=== PATIENT | male | born 1960 | race Caucasian/White ===

== ENCOUNTER 2022-06-25 08:51 | Outpatient (CLI) | payer OTHER, SELFPAY ==
--- NOTE | ~2022-06-25 | XR_ITS ---
EXAM: XR knee LT min 4V DATE: 06/25/2022 09:21 HISTORY: PAIN OF L KNEE JOINT x 6 mos; no injury . COMPARISON: 04/12/2019. FINDINGS: Normal mineralization. No fracture or dislocation. No lytic or blastic lesion. Severe medi al joint space narrowing. Moderate tricompartmental osteophytosis. No erosion or periosteal change. S oft tissues within normal limits. Large volume joint fluid. IMPRESSION: Tricompartmental left knee osteoarthritis, severe in the medial compartment. Large left k nee joint effusion. Reviewed, dictated and finalized at location K. OBJECTS SALESPERSON IMPRESSION: Tricompartmental left knee osteoarthritis, severe in the medial com partment. Large left knee joint effusion.
== END 2022-06-25 08:52 | disposition home or self-care (01) ==
PROVIDERS: PCP Internal Medicine Infectious Disease; Visit Provider Internal Medicine Infectious Disease
DX: M17.12 Unilateral primary osteoarthritis, left knee (principal); M25.462 Effusion, left knee
CPT/HCPCS: 73564

== ENCOUNTER 2023-04-23 13:22 | Emergency (ER) | payer OTHER, SELFPAY ==
--- NOTE | 2023-04-23 13:37 | PC.NURSE ---
Pt states Take me off the list. Im not going to wait 5 hours and left department
== END 2023-04-23 13:46 | disposition left against medical advice (07) ==
LOC: ANHED 13:40
PROVIDERS: PCP Internal Medicine Infectious Disease
DX: Z53.21 Procedure and treatment not carried out due to patient leaving prior to being seen by health care provider (principal)
CPT/HCPCS: 99199

== ENCOUNTER 2023-07-01 04:36 | Emergency (ER) | payer OTHER, SELFPAY ==
[2023-07-01] VITALS (7 sets, daily range): BP systolic 108–162; BP diastolic 54–79; PULSE 62–72; RESP 12–18; TEMP 36.2–36.5; O2SAT 96–99
--- NOTE | ~2023-07-01 | XR_ITS ---
Clinical Indication: Shortness of breath PA and lateral views of the chest: Comparison: None Findings: The lungs are clear, without evidence of focal consolidation or pleural effusion. Cardiome diastinal silhouette is within normal limits. Bones and soft tissues are unremarkable. Impression: Normal chest. Reviewed, dictated and finalized at [facility]. CASTING ENGINEER Impression: Normal chest.
--- NOTE | 2023-07-01 04:38 | ECG_ITS ---
Measurements Intervals [place] Rate: 68 P: 62 [place]: 225 QRS: 78 QRSD: 114 T: 67 QT: 374 QTc: 398 Interpretive Statements SINUS RHYTHM WITH FIRST DEGREE AV BLOCK INCOMPLETE RIGHT BUNDLE BRANCH BLOCK [90+ ms QRS DURATION, TERMINAL R IN V1/V2, 40+ ms S IN I/aVL/V4/V5/V6] BORDERLINE ECG NO PREVIOUS ECG AVAILABLE FOR COMPARISON Electronically Signed On 07-01-2023 15:08:44 RETAIL BUSINESS DEVELOPMENT MANAGER by Amauri Barros M.D.
--- NOTE | 2023-07-01 05:00 | ED.GENADULT ---
HPI - General Adult General Chief complaint: Shortness of Breath/Dyspnea <Vishnu Gama MD - Last Filed: 07/01/23 05:07> Stated complaint: shortness of breath <Vishnu Gama MD - Last Filed: 07/01/23 05:07> Time Seen by Provider: 07/01/23 04:48 <Vishnu Gama MD - Last Filed: 07/01/23 05:07> History of Present Illness HPI narrative: Patient is a 62-year-old gentleman presents to the emergency department with chief complaint of shortness of breath. Patient reports for the last several months has been having increasing shortness of breath he has seen his primary care provider as an outpatient echo pulmonary function test and a low-dose CT scan ordered also see Cardiology the patient states tonight he woke up felt short of breath and decided to come to the emergency department as he was scared <Vishnu Gama MD - Last Filed: 07/01/23 05:07> Related Data Allergies/adverse reactions: Allergies Allergy/AdvReac Type Severity Reaction Status Date / Time nalbuphine Allergy Unknown Unknown Verified 04/23/23 13:23 acetaminophen AdvReac Unknown Unknown Verified 04/23/23 13:23 hydrocodone AdvReac Unknown Unknown Verified 04/23/23 13:23 <Vishnu Gama MD - Last Filed: 07/01/23 05:07> Review of Systems Review of Systems: A 10 system review of systems was completed on the patient and is negative except for what is stated in the HPI. Nursing and ancillary documentation was reviewed. <Vishnu Gama MD - Last Filed: 07/01/23 05:07> PMFSH Social History Social History: Social History Smoking status: Never smoker Alcohol intake: current <Vishnu Gama MD - Last Filed: 07/01/23 05:07> Exam Narrative: GENERAL: Well-appearing, well-nourished, and in no acute distress. HEAD: Normocephalic, atraumatic. EYES: PERRLA and EOMI. ENT: Nares clear, no rhinorrhea or epistaxis. Mucous membranes moist. NECK: Supple. CHEST: Clear to auscultation. No respiratory distress. HEART: Regular rate and rhythm. No murmur heard. Normal peripheral pulses. ABDOMEN: Soft, nontender, nondistended, normal active bowel sounds. EXTREMITIES: Normal range of motion. No edema. SKIN: Warm, dry, no rash. NEURO: No focal deficits. Alert and oriented x3. PSYCH: Anxious mood and tearful affect. <Vishnu Gama MD - Last Filed: 07/01/23 05:07> Course Course Emergency Course: Troponin negative x2. Patient appropriate for discharge home and outpatient follow-up. Patient verbalized understanding of treatment plan and lab/ imaging/EKG results. <Matti Zabala MD - Last Filed: 07/01/23 09:00> Vital Signs Vital signs: Vital Signs Temperature 97.1 F L 07/01/23 04:39 Pulse Rate 71 07/01/23 04:39 Respiratory Rate 18 07/01/23 04:39 Blood Pressure 162/79 H 07/01/23 04:39 Pulse Oximetry 97 07/01/23 04:39 Temperature 97.7 F 07/01/23 04:57 Pulse Rate 68 07/01/23 07:00 Respiratory Rate 14 07/01/23 07:00 Blood Pressure 108/62 07/01/23 07:00 Pulse Oximetry 99 07/01/23 07:00 Oxygen Delivery Room Air 07/01/23 04:56 <Vishnu Gama MD - Last Filed: 07/01/23 05:07> Vital Signs Temperature 97.1 F L 07/01/23 04:39 Pulse Rate 71 07/01/23 04:39 Respiratory Rate 18 07/01/23 04:39 Blood Pressure 162/79 H 07/01/23 04:39 Pulse Oximetry 97 07/01/23 04:39 Temperature 97.7 F 07/01/23 04:57 Pulse Rate 68 07/01/23 07:00 Respiratory Rate 14 07/01/23 07:00 Blood Pressure 108/62 07/01/23 07:00 Pulse Oximetry 99 07/01/23 07:00 Oxygen Delivery Room Air 07/01/23 04:56 <Matti Zabala MD - Last Filed: 07/01/23 09:00> Medical Decision Making Vital Signs Vital Signs: Vital Signs Temperature 97.1 F L 07/01/23 04:39 Pulse Rate 71 07/01/23 04:39 Respiratory Rate
[2023-07-01 05:08] LABS: Basophils Percent Auto 0.5 % (0.2-1.2); Eosinophils Absolute Auto 0.4 K/mm3 (0-0.3); Eosinophils Percent Auto 5.8 % (0-4.4); Hematocrit 43.7 % (42.0-52.0); Immature Granulocyte Absolute 0.02 K/mm3 (0.00-0.031); Immature Granulocyte Percent A 0.3 % (0-0.5); Lymphocytes Absolute Auto 1.86 K/mm3 (0.9-3.2); Lymphocytes Percent Auto 30.2 % (18.3-44.2); Mean Corpuscular Hemoglobin 30.9 pg (26-34); Mean Corpuscular Volume 96.5 fl (80-100); Mean Platelet Volume 12.2 fl (7.4-10.4); Monocytes Absolute Auto 0.7 K/mm3 (0.1-0.6); Neutrophils Absolute Auto 3.2 K/mm3 (1.3-6.7); Neutrophils Percent Auto 51.2 % (45.5-73.1); Platelet Count Result 201 k/mm3 (150-375); Red Blood Count 4.53 M/mm3 (4.6-6.20); Red Cell Distribution Width 12.9 % (11.5-14.5); White Blood Count 6.2 K/mm3 (4.5-10.0)
[2023-07-01 05:31] LABS: Alanine Aminotransferase 35 U/L (6-50); Albumin Level 4.6 g/dL (3.5-5.1); Alkaline Phosphatase 57 U/L (38-126); Anion Gap 9 mmol/L (8-16); Aspartate Amino Transferase 31 U/L (17-59); Bilirubin,Total 0.5 mg/dL (0.2-1.3); Blood Urea Nitrogen 19 mg/dL (9-20); Calcium 9.9 mg/dL (8.4-10.2); Carbon Dioxide 26 mmol/L (22-30); Chloride 105 mmol/L (98-107); Estimated CRCL calculation 90 ml/min; Estimated Glomerular Filt Rate > 60; Glucose 120 mg/dL (65-110); INR 0.9; Prothrombin Time 12.3 Seconds (11.1-14.7); Sodium 140 mmol/L (137-145)
[2023-07-01 05:32] LABS: Partial Thromboplastin Time 25.4 SECONDS (22.3-36.8)
[2023-07-01 05:37] LABS: Ethanol < 10 mg/dL (<10)
[2023-07-01 05:42] LABS: Magnesium 1.9 mg/dL (1.6-2.3)
[2023-07-01 05:59] LABS: NT Pro B Type Natriuretic Pept 109 pg/mL (19.9-100); Troponin I < 0.012 ng/mL (0.000-0.034)
[2023-07-01 08:44] LABS: Troponin I < 0.012 ng/mL (0.000-0.034)
== END 2023-07-01 09:10 | disposition home or self-care (01) ==
PROVIDERS: Emergency Provider Emergency Medicine; PCP Internal Medicine Infectious Disease
DX: R07.9 Chest pain, unspecified (principal); I44.0 Atrioventricular block, first degree; I45.10 Unspecified right bundle-branch block
CPT/HCPCS: 36415; 71046; 80053; 80307; 83735; 83880; 84484; 85025; 85610; 85730; 93005; 99284

== ENCOUNTER 2023-07-09 07:18 | Outpatient (CLI) | payer OTHER, SELFPAY ==
--- NOTE | 2023-07-09 | ECHO_ITS ---
Patient Info Name: Lamont Jacob Age: 62 years : 1960 Gender: Male Ht: 72 in Wt: 250 lbs BSA: 2.44 m2 HR: 58 bpm BP: 127 / 84 mmHg Heart Rhythm: Sinus Rhythm Technical Quality: Fair Exam Date: 07/09/2023 7:52 AM Exam Location: Echo Lab Patient Status: Outpatient Admit Date: 07/09/2023 Staff Ordering Physician: ChloeJanet M.D. Attending Provider: Juan CarlosJanet M.D. Exam Type: CA echo doppler color flow Study Info Indications R06.09 - Other forms of dyspnea Complete two-dimensional, color flow and Doppler transthoracic echocardiogram is performed. Summary 1. Complete two-dimensional, color flow and Doppler transthoracic echocardiogram is performed. 2. Left ventricular chamber dimension is normal. 3. Left ventricular systolic function is normal, estimated at 60-65%. 4. There is mildly increased left ventricular wall thickness. 5. The left ventricular diastolic function is grade I diastolic dysfunction. 6. There is mild aortic valve calcification. 7. There is mild tricuspid valve regurgitation. Left Ventricle Left ventricular chamber dimension is normal. Left ventricular systolic function is normal, estimated at 60-65%. There is mildly increased left ventricular wall thickness. The left ventricular diastolic function is grade I diastolic dysfunction. Right Ventricle Right ventricular chamber dimension is normal. Right ventricular systolic function is normal. Left Atria Left atrial chamber dimension is normal. Right Atria Right atrial chamber dimension is normal. Atrial Septum Intact interatrial septum visualized by color flow imaging. Aortic Valve The aortic valve is trileaflet. There is no aortic valve stenosis. There is trace aortic valve regurgitation. There is mild aortic valve calcification. Pulmonic Valve The pulmonic valve is normal. There is no pulmonic valve stenosis. There is trace pulmonic regurgitation. Mitral Valve The mitral valve has normal leaflets. There is no mitral valve stenosis. There is trace mitral valve regurgitation. Tricuspid Valve The tricuspid valve leaflets are normal. There is no significant tricuspid valve stenosis. There is mild tricuspid valve regurgitation. Pericardium/Pleural The pericardium appears normal. There is no pericardial effusion. Inferior Vena Cava Normal inferior vena cava with >50% collapse upon inspiration consistent with normal right atrial pressure, 8 mmHg. Aorta The aortic root size at the sinus of Valsalva is normal. Left Ventricular Outflow Tract Name Value Normal LVOT 2D LVOT Diameter 2.0 cm LVOT Doppler LVOT Peak Gradient 4 mmHg LVOT Mean Gradient 2 mmHg LVOT VTI 21 cm LVOT VTI/AV VTI Ratio 0.6 LVOT Stroke Volume 66 ml LVOT CO 3.8 l/min LVOT CI 1.6 l/min/m2 Pulmonic Valve Name Value Normal PV Do
--- NOTE | 2023-07-09 12:44 | WPDPFTINT ---
PFT Procedure Performed PFT Procedure Performed Spirometry with Pre/Post Bronchodilator Plethysmography (Lung Vol) Diffusing Cap (DLCO) Flow Vol Loop PFT Interpretation This is a pulmonary function test with pre and post-bronchodilator spirometry, plethysmography and diffusing capacity. The test was performed and results interpreted in accordance with the 2019 and 2005 ATS/ERS Task Force guidelines respectively using the Global Lung Function Initiative-2012 reference equations. Patient demonstrated good effort and cooperation. Reproducibility criteria were met. The quality of the pre bronchodilator spirometry maneuver was Grade A and post bronchodilator spirometry maneuver was Grade A. Findings: Spirometry: The contour the inspiratory and expiratory flow tracing are normal. The pre bronchodilator FVC is 4.52 L, 91% predicted. The pre bronchodilator FEV1 is 3.13 L, 82% predicted. The pre bronchodilator FEV1: FVC ratio is 69%. The post bronchodilator FVC is 4.55 L, representing a 1% increase. The post bronchodilator FEV1 is 3.23 L, representing a 3% increase. The post bronchodilator FEV1: FVC ratio 71%. Plethysmography: The total lung capacity is 8.10 L, 109% predicted. The functional residual capacity is 4.33 L, 111% predicted. The residual volume is 3.51 L, 149% predicted. Diffusing capacity: The diffusing capacity unadjusted for hemoglobin and carboxyhemoglobin is 24.5, 84% predicted. The diffusing capacity adjusted for alveolar volume is 3.99, 97% predicted. Impression: The spirometry is normal without evidence of an obstructive abnormality. There is no significant improvement after inhaling a single dose of albuterol. The total lung capacity and functional residual capacity are normal with an increased residual volume. This is an abnormal but nonspecific lung volume pattern. The diffusing capacity is normal. There are no prior studies for comparison
== END 2023-07-09 07:19 | disposition home or self-care (01) ==
LOC: ANHCARD 07:24
PROVIDERS: PCP Internal Medicine Infectious Disease; Visit Provider Internal Medicine Infectious Disease
DX: R06.09 Other forms of dyspnea (principal); R93.1 Abnormal findings on diagnostic imaging of heart and coronary circulation; I70.0 Atherosclerosis of aorta; I07.1 Rheumatic tricuspid insufficiency
CPT/HCPCS: 93306; 94060; 94726; 94729

== ENCOUNTER 2023-07-12 13:46 | Outpatient (CLI) | payer OTHER, SELFPAY ==
--- NOTE | ~2023-07-12 | CT_ITS ---
CT Scan of the Chest without Contrast: Clinical Indication: Cancer screening, personal history of nicotine dependence Technique: Contiguous sections were acquired throughout the chest without intravenous contrast. Dose reduction technique was used on this scan by utilizing automated exposure control and iterative recon struction technique. The dose-length product (DLP) was 266.03 mGy-cm. Findings: There is no evidence of any significant mediastinal, hilar or axillary lymphadenopathy. The mediastin al soft tissues appear normal. There is no evidence of pleural or pericardial effusion. There are several scattered 1-2 mm pulmonary nodules. Images through the upper abdomen reveal no abnormalities. Impression: Lung RADS 2: Benign appearance. 12 month follow-up screening CT advised. Reviewed, dictated and finalized at location . ONS ENGINEER Impression: Lung RADS 2: Benign appearance. 12 month follow-up screening CT advised.
== END 2023-07-12 13:47 | disposition home or self-care (01) ==
PROVIDERS: PCP Internal Medicine Infectious Disease; Visit Provider Internal Medicine Infectious Disease
DX: Z12.2 Encounter for screening for malignant neoplasm of respiratory organs (principal); Z87.891 Personal history of nicotine dependence
CPT/HCPCS: 71271

== ENCOUNTER 2024-08-25 11:24 | Outpatient (CLI) | payer OTHER, SELFPAY ==
--- NOTE | ~2024-08-25 | XR_ITS ---
Right Shoulder Technique: AP and scapular Y views were obtained. Clinical History: Pain Findings: No fracture or dislocation is seen. Osseous alignment is anatomic. The glenohumeral and acr omioclavicular joint spaces are preserved. Soft tissues are unremarkable. Impression: Unremarkable right shoulder radiographs. Reviewed, dictated and finalized at [facility]. IFIED SKI PATROLLER Impression: Unremarkable right shoulder radiographs.
--- OUTSIDE RECORDS SUMMARY | 2024-08-25 12:36 | XMS_ITS | Encounter Summary ---
Author Organization [facility] Address [address] [place] [address] Care Team Providers Care Chief Technician Name Role Phone Unavailable Primary Care Provider Unavailabl e Encounter Details Date Type Department Care Team (Late st Contact Info) Description 01/02/2001 Outpatient Historical [facility] Internal Medicine Medical [place] [facility] [address] [facility] [address] Mario Soria MD [address] [place] [address] Social History Tobacco Use Types Packs/Day Years Used Date Smoking Tobacco: Never Assessed Sex and Gender Information Value Date Recorded Sex Assigned at Not on file Legal Sex Male 5:10 AM 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
--- OUTSIDE RECORDS SUMMARY | 2024-08-25 12:36 | XMS_ITS | Encounter Summary ---
Author Organization [facility] Address [address] [place] [address] Phone Care Team Providers Care Grinding Room Inspector Name Role Phone Janet Corona MD Primary Care Provider Encounter Details Date Type Department Care Team (Latest Contact Info) Description 09/04/2023 Orders Only [facility] Latesha Garduno, RENZO [address] [facility] [address] [place] [address] Social History Tobacco Use Types Packs/Day Years Used Date Smoking Tobacco: Some Days Cigarettes Personal Safety Answer Date Recorded Getting School Help Needed Not on file 07/16 Sex and Gender Information Value Date Recorded Sex Assigned at Not on file Legal Sex Male 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 Gender Identity Not on file Sexual Orientation Not on file documented as of this encounter Plan of Treatment Not on file documented as of this encounter Procedures Procedure Name Priority Date/Time Associated Diagnosis Comments SCAN - LABS 09/04/2023 documented in this encounter Results * SCAN - LABS (09/04/2023) Latesha Garduno RN Final Result documented in this encounter Visit Diagnoses Not on filedocumented in this encounter Care Teams Grinding Room Inspector Relationship Specialty Start Date End Date Janet Corona MD [address] [facility] [address] [place] [address] PCP - General Internal Medicine 06/19/23 documented as of this encounter
--- OUTSIDE RECORDS SUMMARY | 2024-08-25 12:36 | XMS_ITS | Continuity of Care Document ---
Author Organization [facility] Address [address] [place] [address] Phone Care Team Providers Care Dispatch Machine Runner Name Role Phone Aminata Douglas Unavailable Unavailable Advance Directives Directive Yes / No Effective Date File Name No Information Encounters Encounter Description Practice Location Reason(s) For Visit Diagnoses Date Provider Providers Copied on Encounter [facility], [address], [place], [place], [id number], [place] tel:[phone] [facility] No Information 5-200 0 Stella Coates. [address], [place], [address], [place]. tel:[phone] Family History Family Member Type Diagnosis Age At Onset No Information Payers Payer name Insurance type Covered green party ID Authoriza tion(s) No Information Social [...]
--- OUTSIDE RECORDS SUMMARY | 2024-08-25 12:36 | XMS_ITS | Clinical Summary ---
Author Organization [facility] Address [address] [place] [address] Care Team Providers Care Solutions Sales Consultant Name Role Phone Janet Corona MD Primary Care Provider Allergies Active Allergy Reactions Criticality Noted Date Comments Gemfibrozil Itching Low 10/02/2018 Hydrocodone-Acetaminophen Headache Low 09/30/2019 Metoprolol Fatigue Low 11/29/2023 Nalbuphine Unknown 08/07/2023 Hrteztp-Lxd-Gkf Reductase Inhibitors Diarrhea Low 08/07/2023 Medications Viagra 100 mg tablet TAKE 0.5 TABLET BY MOUTH 1 HOUR PRIOR TO SEXUAL ACTIVITY DIRECTED, NOT TO EXCEED MORE THAN 0.5 TABLET EVERY 24 HOURS, MUST LAST 30 DAYS Active valsartan (DIOVAN) 80 mg tablet Take 1 tablet (80 mg total) by mouth daily 30 tablet 11 08/23/2023 Active venlafaxine 37.5 mg tablet extended release 24hr 24 hr tablet Take 1 tablet (37.5 mg total) by mouth daily Active hydrOXYzine (VISTARIL) 25 mg capsule Take 1 capsule (25 mg total) by mouth 3 (three) times a day as needed for anxiety 09/23/2023 Active atorvastatin (LIPITOR) 10 mg tablet Take 1 tablet (10 mg total) by mouth daily 30 tablet 06/01/2024 06/01/20 Active Active Problems Problem Noted Date Diagnosed Date Hypertension 10/15/2023 Mixed hyperlipidemia 10/15/2023 Generalized anxiety disorder 10/15/2023 Chronic alcohol use 10/15/2023 Tinnitus 10/15/2023 Encounters Date Type Department Care Team Description 05/30/2024 Telephone [facility] Cardiology [address] [facility] [address] [place] [address] [place] [address] Sukhi Knowles MD Med Change Request from Last 3 Months Social History Tobacco Use Types Packs/Day Years Used Date Smoking Tobacco: Some Days Cigarettes Tobacco Cessation:Ready to Q uit: Not Asked; Counseling Given: Not Answered Personal Safety Answer Date Recorded Getting School Help Needed Not on file 07/16 Sex and Gender Information Value Date Recorded Sex Assigned at Not on file Legal Sex Male 4:44 AM HEALTH AND WELLNESS DIRECTOR Gender Identity Not on file Sexual Orientation Not on file Obstetrics History Last Filed Vital Signs Vital Sign Reading Time Taken Comments Blood Pressure 155/83 10/14/2023 8:02 AM CDT Pulse 71 10/14/2023 8:02 AM CDT Temperature 36.7 ??C (98.1 ??F) 10/14/2023 8:02 AM CD T Respiratory Rate - - Oxygen Saturation 98% 10/14/2023 8:02 AM CDT Inhaled Oxygen Concentration - - Weight 113.9 kg (251 lb) 10/14/2023 8:02 AM CDT Height 182.9 cm (6') 10/14/2023 8:02 AM CDT Body Mass Index 34.04 10/14/2023 8:02 AM CDT Plan of Treatment Health Maintenance Due Date Last Done Comments Colon Cancer Screening-Colonoscopy 1960 Depression Screening 1960 Hepatitis C Screening 1960 Prostate Cancer Screening-PSA 1960 Pneumococcal vaccine <65 (1 of 2 - PCV) 1968 DTaP/Tdap/Td Vaccine (1 - Tdap) 1973 Hepatitis B Screening 1980 Regular Well Visit/Exam 18-64 1980 Zoster Vaccine (1 of 2) 2012 Covid-19 Vaccine (6 - 2023-2 5 season) 2024 06/05/2023, 05/29/2022, 06/16/2021, Additional history exists Influenza Vaccine (#1) 2024 , 05/02/2022, 05/08/2021, Additional history exists Insurance [facility] Care Teams Solutions Sales Consultant Relationship Specialty Start Date End Date Janet Corona MD [facility] [place] [address] PCP - General Internal Medicine 06/19/23
--- OUTSIDE RECORDS SUMMARY | 2024-08-25 12:36 | XMS_ITS | Encounter Summary ---
Author Organization [facility] Address [address] [place] [address] Phone Care Team Providers Care Seed Cleaning Manager Name Role Phone Janet Corona MD Primary Care Provider Encounter Details Date Type Department Care Team (Latest Contact Info) Description 07/01/2023 Orders Only [facility] Latesha Garduno, RN [address] [facility] [address] [place] [address] Social History Tobacco Use Types Packs/Day Years Used Date Smoking Tobacco: Never Assessed Sex and Gender Information Value Date Recorded Sex Assigned at Not on file Legal Sex Male 4:44 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 & 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 Gender Identity Not on file Sexual Orientation Not on file documented as of this encounter Plan of Treatment Not on file documented as of this encounter Procedures Procedure Name Priority Date/Time Associated Diagnosis Comments PULMONARY - RESULT SCAN 07/09/2023 SCAN - RADIOLOGY/IMAGING 07/01/2023 SCAN - LABS 07/01/2023 documented in this encounter Results * PULMONARY - RESULT SCAN (07/09/2023) Anatomical Region Laterality Modality Other us Latesha Garduno RN Final Result * SCAN - LABS (07/01/2023) us Latesha Garduno RN Final Result * SCAN - RADIOLOGY/IMAGING (07/01/2023) Anatomical Region Laterality Modality Other us Latesha Garduno RN Final Result documented in this encounter Visit Diagnoses Not on filedocumented in this encounter Care Teams Seed Cleaning Manager Relationship Specialty Start Date End Date Janet Corona MD [address] [place] [address] PCP - General Internal Medicine 06/19/23 documented as of this encounter
--- OUTSIDE RECORDS SUMMARY | 2024-08-25 12:36 | XMS_ITS | Encounter Summary ---
Author Organization [facility] Address 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
--- OUTSIDE RECORDS SUMMARY | 2024-08-25 12:36 | XMS_ITS | Encounter Summary ---
Author Organization [facility] Address [address] [place] [address] Phone Care Team Providers Care Sexer Name Role Phone Janet Corona MD Primary Care Provider Encounter Details Date Type Department Care Team (Latest Contact Info) Description 01/04/2016 Orders Only [facility] Latesha Garduno RN [address] [facility] [address] [place] [address] Social History Tobacco Use Types Packs/Day Years Used Date Smoking Tobacco: Never Assessed Sex and Gender Information Value Date Recorded Sex Assigned at Not on file Legal Sex Male 4:44 AM FILLING AND STAPLING MACHINE OPERATOR Gender Identity Not on file Sexual Orientation Not on file documented as of this encounter Plan of Treatment Not on file documented as of this encounter Procedures Procedure Name Priority Date/Time Associated Diagnosis Comments CARDIOLOGY DOCUMENT SCAN 01/04/2016 documented in this encounter Results * CARDIOLOGY DOCUMENT SCAN (01/04/2016) Anatomical Region Laterality Modality Other us Latesha Garduno RN [facility] P ROCEDURES Final Result documented in this encounter Visit Diagnoses Not on filedocumented in this encounter Care Teams Sexer Relationship Specialty Start Date End Date Janet Corona MD [address] [facility] [address] [place] [address] PCP - General Internal Medicine 06/19/23 documented as of this encounter
--- OUTSIDE RECORDS SUMMARY | 2024-08-25 12:36 | XMS_ITS | Clinical Summary ---
Author Organization [facility] Responsa Address [address] [facility] [place] [address] Care Team Providers Care Buyer Tobacco Head Name Role Phone Janet Corona MD Primary Care Provider Source Comments [facility],non-owned Affiliates and Associated Physician Practices is amultiple site organization consisting of ambulatory clinics and hospital sitesin [place], [place], [place] and [place]. This disclosure is being madepursuant to the Care Everywhere program and may not contain all information available regarding this patient. Last updated 18.[facility] Allergies Active Allergy Reactions Criticality Noted Date Comments Hydrocodone-Acetaminophen Headache 09/30/2019 Medications * Be aware that medications may not be up to date on this document. Alwaysverify current medications with the patient. Medication Sig Dispensed Refills Start Date End Date Status valsartan 80 MG TABS 80 mg, hydroCHLOROthiazide 12.5 MG CAPS 12.5 mg Take by mouth once daily Active ezetimibe-simvastatin (VYTORIN) 10-10 MG tablet Take 1 (one) tablet by mouth at bedtime Active fenofibrate (TRICOR) 145 MG tabletIndications:Mixed hyperlipidemia Take 1 tablet by mouth once daily 90 tablet 3 11/02/2019 Active valACYclovir (Valtrex) 500 MG tablet Take 1 (one) tablet by mouth once daily as directed. 06/18/2022 Active Cyanocobalamin (VITAMIN B-12 PO) Active Ascorbic Acid (DAY-C PO) Active B Complex Vitamins (VITAMIN B COMPLEX PO) Ac tive ibuprofen (Motrin) 200 MG tablet Take by mouth every 6 hours as needed for Pain Active diphenhydrAMINE (Benadryl Allergy) 25 MG capsule Take 1 (one) capsule by mouth every 4 hours as needed for Itching Active Active Problems Problem Noted Date Diagnosed Date Mixed hyperlipidemia Prediabetes Class 2 obesity Steatohepatitis Chronic alcohol use Hypertension Immunizations Name Administration Dates Next Due INFLUENZA VACCINE 05/05/2019 Family History Medical History Relation Name Comments CAD (Coronary Artery Disease) Neg Hx Hyperlipidemia Neg Hx Social History Tobacco Use Types Packs/Day Years Used Date Smoking Tobacco: Never Smokeless Tobacco: Never Alcohol Use Standard Drinks/Week Comments Yes 8 (1 standard drink = 0.6 oz pur e alcohol) Sex and Gender Information Value Date Recorded Sex Assigned at Not on file Gender Identity Not on file Sexual Orientation Not on file Last Filed Vital Signs Vital Sign Reading Time Taken Comments Blood Pressure 138/90 09/30/2019 2:03 PM FILLING HAULER Pulse 70 09/30/2019 2:03 PM FILLING HAULER Temperature 36.2 ??C (97.2 ??F) 09/30/2019 2:03 PM CS T Respiratory Rate - - Oxygen Saturation 98% 09/30/2019 2:03 PM FILLING HAULER Inhaled Oxygen Concentration - - Weight 113.4 kg (250 lb) 07/12/2022 8:29 AM FILLING HAULER Height 182.9 cm (6') 07/12/2022 8:29 AM FILLING HAULER Body Mass Index 33.91 07/12/2022 8:29 AM FILLING HAULER Plan of Treatment Health Maintenance Due Date Last Done Comments COLOGUARD (AGES 45-75) - COLON CA SCREENING 1962 COLON MONITORING 1962 COLONOSCOPY - COLON CA SCREENING 1962 CT COLONOGRAPHY - COLON CA SCREENING 1962 Colorectal Cancer Screening 1962 FIT - COLON CA SCREENING 1962 FLEX SIG - COLON CA SCREENING 1962 HIV SCREENING 1977 HEPATITIS C SCREENING 07/05/1980 DTAP/TDAP/TD VACCINES (1 - Tdap) 1981 PNEUMOCOCCAL VACCINE 50+ (1 of 1 - PCV) 2012 ZOSTER VACCINE (1 of 2) 2012 SCREENING FOR DIABETES 11/18/2022 11/19/2019 COVID-19 VACCINE (4 - season) 2024 06/16/2021, 10/19/2020, 09/23/2020 INFLUENZA VACCINE (#1) 2024 2, 05/08/2021, 05/18/2020, Additional history exists DEPRESSION SCREENING 07/29/2024 Respiratory Syncytial Virus (RSV) Vaccine Pt: or over 60 yrs (1 - 1-dose 75+ series) 2037 HEPATITIS B VACCINE Aged Out No longe r eligible based on patient's age to complete this topic HIB VACCINE Aged Out No longer eligi ble based on patient's age to complete this topic HPV VACCINE Aged Out No longer eligi ble based on patient's age to complete this topic MENINGOCOCCAL (Group B) VACCINE Aged Out No longer eligible based on patient's age to complete this topic MENINGOCOCCAL VACCINE Aged Out No madhav sam eligible based on patient's age to complete this topic PNEUMOCOCCAL VACCINE Aged Out No long er eligible based on patient's age to complete this topic Procedures Procedure Name Priority Date/Time Associated Diagnosis Comments HEMOGLOBIN A1C Routine 11/19/2019 8:44 AM CDT Mixed hyperlipidemia Prediabetes Hypertriglyceridemia from Last 3 Months or Most Recently Relevant to Health Maintenance Results * (ABNORMAL) HEMOGLOBIN A1C (11/19/2019 8:44 AM CDT) Hemoglobin A1c 6.0(H) 4.8 - 5.6 % [facility] INSURANCE BILL Comment: ? . ? Prediabetes: 5.7 - 6.4 ? Diabetes: >6.4 ? Glycemic control for adults with diabetes: <7.0 FASTING Blood BLOOD SPECIMEN / Unknown 11/19/2019 8:44 AM CDT 11/19/2019 Narrative Resulting Agency Comment Lab Testing performed at: [place] [id number] [facility] ??[facility] [id number] Kavita Garzon MD LAB - CHEMISTR Y ORDERABLES [facility] INSURANCE BILL [address] [place] [address] from Last 3 Months or Most Recently Relevant to Health Maintenance Insurance Payer Benefit Plan / Group Subscriber ID Effective Dates Phone Address Type [facility] MEDICAID [id number] Effective for all dates ATTN CLAIMS DEPARTMENT [address] [place] [address] [address] [facility] MEDICA[facility] [id number] Effective for all dates ATTN CLAIMS DEPARTMENT [address] [place] [address] Medicaid Managed Care [facility] MEDICAID [id number] Effective for all dates ATTN CLAIMS DEPARTMENT [address] [place] [address] [facility] [address] [facility] MEDICA[facility] [id number] Effective for all dates ATTN CLAIMS DEPARTMENT [address] [place] [address] Medicaid Managed Care [facility] [place] [facility] [place] [id number] Effective for all dates ATTN CLAIMS DEPARTMENT [address] [place] [address] Medicaid Managed Care [facility] MEDICAID [id number] Effective for all dates ATTN CLAIMS DEPARTMENT [address] [place] [address] Medicaid Managed Care [facility] MEDICAID [id number] Effective for all dates ATTN CLAIMS DEPARTMENT [address] [place] [address] Medicaid Managed Care [facility] MEDICAID [id number] Effective for all dates ATTN CLAIMS DEPARTMENT [address] [place] [address] Medicaid Managed Care [facility] MEDICAID [id number] Effective for all dates ATTN CLAIMS DEPARTMENT [address] [place] [address] Medicaid Managed Care [facility] MEDICAID [id number] Effective for all dates ATTN CLAIMS DEPARTMENT [address] [place] [address] Medicaid Managed Care [facility] MEDICAID [id number] Effective for all dates ATTN CLAIMS DEPARTMENT [address] [place] [address] Medicaid Managed Care [facility] MEDICAID [id number] Effective for all dates ATTN CLAIMS DEPARTMENT [address] [place] [address] Medicaid Managed Care [facility] MEDICAID [id number] Effective for all dates ATTN CLAIMS DEPARTMENT [address] [place] [address] Medicaid Managed Care [facility] MEDICAID [id number] Effective for all dates ATTN CLAIMS DEPARTMENT [address] [place] [address] Medicaid Managed Care [facility] MEDICAID [id number] Effective for all dates ATTN CLAIMS DEPARTMENT [address] [place] [address] Medicaid Managed Care [facility] MEDICAID [id number] Effective for all dates ATTN CLAIMS DEPARTMENT [address] [facility] [address] [facility] [address] [facility] MEDICAID [id number] Effective for all dates ATTN CLAIMS DEPARTMENT [address] [facility] [address] [address] Care [facility] MEDICA[facility] [id number] Effective for all dates ATTN CLAIMS DEPARTMENT [address] [place] [place] [address] Managed [address] [facility] MEDICAID [id number] Effective for all dates ATTN CLAIMS DEPARTMENT [address] [facility] [address] [place] [address] [facility] MEDICAID [id number] Effective for all dates ATTN CLAIMS DEPARTMENT 1 [facility], [address] [place] [address] Medicaid Managed Care [facility] MEDICAID [id number] Effective for all dates ATTN CLAIMS DEPARTMENT 1 [facility] [place], [address] [place] [address] Medicaid Managed Care [facility] MEDICAID [id number] Effective for all dates ATTN CLAIMS DEPARTMENT 1 [facility], [address] [place] [address] Medicaid Managed Care [facility] MEDICAID [id number] Effective for all dates ATTN CLAIMS DEPARTMENT 1 [address] [address] [place] [address] Medicaid Managed Care [facility] MEDICAID [id number] Effective for all dates ATTN CLAIMS DEPARTMENT [address] [place] [address] [address] Managed Care [facility] MEDICA[facility] [id number] Effective for all dates ATTN CLAIMS DEPARTMENT [address] [place] [address] [facility] MEDICA[facility] [id number] Effective for all dates ATTN CLAIMS DEPARTMENT [address] [place] [address] [address] Managed Care [facility] MEDICAID [id number] Effective for all dates [address] [facility] [place] [address] Medicaid Managed Care MARIS COVINGTON Personal/Famil y Other [address] [place] [phone] MARIS COVINGTON Personal/Famil y Other [address] [place] [phone] MARIS CVOINGTON Personal/Famil y Other [address] [place] [phone] ADRIA,MARIS S Personal/Famil y Other [address] [place] [phone] ADRIA,MARIS S Personal/Famil y Other [address] [place] [phone] ADRIA,MARIS S Personal/Famil y Other [address] [place] [phone] ADRIA,MARIS S Personal/Famil y Other [address] [place] [phone] ADRIA,MARIS S Personal/Famil y Other [address] [place] [phone] ADRIA,MARIS S Personal/Famil y Other [address] [place] [phone] ADRIA,MARIS S Personal/Famil y Other [address] [place] [phone] ADRIA,MARIS S Personal/Famil y Other [address] [place] [phone] ADRIA,MARIS S Personal/Famil y Other [address] [place] [phone] ADRIA,MARIS S Personal/Famil y Other [address] [place] [phone] ADRIA,MARIS S Personal/Famil y Other [address] [place] [phone] ADRIA,MARIS S Personal/Famil y Other [address] [place] [phone] ADRIA,MARIS S Personal/Famil y Other [address] [place] [phone] ADRIA,MARIS S Personal/Famil y Other [address] [place] [phone] ADRIA,MARIS S Personal/Famil y Other [address] [place] [phone] ADRIA,MARIS S Personal/Famil y Other [address] [place] [phone] ADRIA,MARIS S Personal/Famil y Other [address] [place] [phone] ADRIA,MARIS S Personal/Famil y Other [address] [place] [phone] Care Teams Buyer Tobacco Head Relationship Specialty [place] [address] [place] [phone] PCP - General 05/25/22
--- OUTSIDE RECORDS SUMMARY | 2024-08-25 12:36 | XMS_ITS | Referral Summary ---
Author Organization [facility] Address [address] [place] [address] Care Team Providers Care Flight Operations Specialist Name Role Phone Janet Corona MD Primary Care Provider Encounters Date Type Department Care Team Description 05/30/2024 Telephone [facility] [address] [facility] 8th [place] [address] [place] [address] Sukhi Knowles MD Med Change Request from Last 3 Months Allergies Active Allergy Reactions Criticality Noted Date Comments Gemfibrozil Itching Low 10/02/2018 Hydrocodone-Acetaminophen Headache Low 09/30/2019 Metoprolol Fatigue Low 11/29/2023 Nalbuphine Unknown 08/07/2023 Rlwlkjm-Hvy-Anp Reductase Inhibitors Diarrhea Low 08/07/2023 Medications Viagra 100 mg tablet TAKE 0.5 TABLET BY MOUTH 1 HOUR PRIOR TO SEXUAL ACTIVITY DIRECTED, NOT TO EXCEED MORE THAN 0.5 TABLET EVERY 24 HOURS, MUST LAST 30 DAYS Active valsartan (DIOVAN) 80 mg tablet Take 1 tablet (80 mg total) by mouth daily 30 tablet 08/23/2023 Active venlafaxine 37.5 mg tablet extended release 24hr 24 hr tablet Take 1 tablet (37.5 mg total) by mouth daily Active hydrOXYzine (VISTARIL) 25 mg capsule Take 1 capsule (25 mg total) by mouth 3 (three) times a day as needed for anxiety 09/23/2023 Active atorvastatin (LIPITOR) 10 mg tablet Take 1 tablet (10 mg total) by mouth daily 30 tablet 11 06/01/2024 06/01/20 25 Active Active Problems Problem Noted Date Diagnosed Date Hypertension 10/15/2023 Mixed hyperlipidemia 10/15/2023 Generalized anxiety disorder 10/15/2023 Chronic alcohol use 10/15/2023 Tinnitus 10/15/2023 Social History Tobacco Use Types Packs/Day Years Used Date Smoking Tobacco: Some Days Cigarettes Tobacco Cessation:Ready to Q uit: Not Asked; Counseling Given: Not Answered Personal Safety Answer Date Recorded Getting School Help Needed Not on file 07/16 Sex and Gender Information Value Date Recorded Sex Assigned at Not on file Legal Sex Male 4:[address]IVER Gender Identity Not on file Sexual Orientation [...] 10/14/2023 8:02 AM CDT Plan of Treatment Not on file Insurance [facility] Care Teams Flight Operations Specialist Relationship Specialty Start Date End Date Janet Corona MD [address] [place] [id number] PCP - General Internal Medicine 06/19/23
--- OUTSIDE RECORDS SUMMARY | 2024-08-25 12:37 | XMS_ITS | Patient Health Summary ---
Author Organization [facility] Address [address] [place] [address] Care Team Providers Care Regional Retail Sales Manager Name Role Phone Janet Corona MD Primary Care Provider Note from [facility],non-owned Affiliates and Associated Physician Practices is amultiple site organization consisting of ambulatory clinics and hospital sitesin [place], [place], [place] and [place]. This disclosure is being madepursuant to the Care Everywhere program and may not contain all information available regarding this patient. Last updated 18.[facility] Allergies * Hydrocodone-Acetaminophen(Headache) Medications * Be aware that medications may not be up to date on this document. Alwaysverify current medications with the patient. * valsartan 80 MG TABS 80 mg, hydroCHLOROthiazide 12.5 MG CAPS 12.5 mg Take by mouth once daily * ezetimibe-simvastatin (VYTORIN) 10-10 MG tablet Take 1 (one) tablet by mouth at bedtime * fenofibrate (TRICOR) 145 MG tablet(Started 11/02/2019) Take 1 tablet by mouth once daily 3 refills by 11/01/2020 * valACYclovir (Valtrex) 500 MG tablet(Started 06/18/2022) Take 1 (one) tablet by mouth once daily as directed. * Cyanocobalamin (VITAMIN B-12 PO) * Ascorbic Acid (DAY-C PO) * B Complex Vitamins (VITAMIN B COMPLEX PO) * ibuprofen (Motrin) 200 MG tablet Take by mouth every 6 hours as needed for Pain * diphenhydrAMINE (Benadryl Allergy) 25 MG capsule Take 1 (one) capsule by mouth every 4 hours as needed for Itching Active Problems Problem Noted Date Diagnosed Date Mixed hyperlipidemia Prediabetes Class 2 obesity Steatohepatitis Chronic alcohol use Hypertension Immunizations * INFLUENZA VACCINE(Given 05/05/2019) Social History Tobacco Use Types Packs/Day Years [...] Comments Blood Pressure 138/90 09/30/2019 2:03 PM ENROLLMENT MANAGEMENT MANAGER Pulse 70 09/30/2019 2:03 PM ENROLLMENT MANAGEMENT MANAGER Temperature 36.2 ??C (97.2 ??F) 09/30/2019 2:03 PM CS T Respiratory Rate - - Oxygen Saturation 98% 09/30/2019 2:03 PM ENROLLMENT MANAGEMENT MANAGER Inhaled Oxygen Concentration - - Weight 113.4 kg (250 lb) 07/12/2022 8:29 AM ENROLLMENT MANAGEMENT MANAGER Height 182.9 cm (6') 07/12/2022 8:29 AM ENROLLMENT MANAGEMENT MANAGER Body Mass Index 33.91 07/12/2022 8:29 AM ENROLLMENT MANAGEMENT MANAGER Procedures * XR KNEE LEFT 4VW OR MORE(Performed 07/12/2022) Performed for Left knee pain, unspecified chronicity * HEMOGLOBIN A1C(Performed 11/19/2019) Performed for Mixed hyperlipidemia, Prediabetes, Hypertriglyceridemia * LDL CHOLESTEROL DIRECT(Performed 11/19/2019) * LIPID PROFILE(Performed 11/19/2019) Results * XR KNEE LEFT 4VW OR MORE (07/12/2022 8:21 AM ENROLLMENT MANAGEMENT MANAGER) Anatomical Region Laterality Modality Lower Extremity Radiographic Shanice ging 07/12/2022 9:40 AM ENROLLMENT MANAGEMENT MANAGER Impressions 07/12/2022 9:41 AM ENROLLMENT MANAGEMENT MANAGER IMPRESSION: There is moderate medial compartment predominant tricompartmental left knee osteoarthritis. There is no acute fracture. There is a moderate knee effusion. Alignment is normal. > Interpreting Provider: Ramin Durbin MD on 07/12/2022 9:41 AM Narrative 07/12/2022 9:41 AM ENROLLMENT MANAGEMENT MANAGER PROCEDURE: ??XR KNEE LEFT 4VW OR MORE, DATE/TIME OF EXAM: ??07/12/2022 8:21 AM, LOCATION ??[facility] INDICATION: M25.562: Left knee pain, unspecified chronicity ADDITIONAL CLINICAL INFORMATION: Ordering Provider Reason For Exam: ??knee pain COMPARISON: None. Procedure Note Ramin Durbin MD - 07/12/2022 PROCEDURE: XR KNEE LEFT 4VW OR MORE, DATE/TIME OF EXAM: 28:21 AM, LOCATION [facility] INDICATION: M25.562: Left knee pain, unspecified chronicity ADDITIONAL CLINICAL INFORMATION: Ordering Provider Reason For Exam: knee pain COMPARISON: None. IMPRESSION: There is moderate medial compartment predominant tricompartmental leftknee osteoarthritis. There is no acute fracture. There is a moderate knee effusion. Alignment is normal. > Interpreting Provider: Ramin Durbin MD on 07/12/2022 9:41 AM Mariia Orta PA-C DIAGNOSTIC IMAGING ORDERABLES * (ABNORMAL) HEMOGLOBIN A1C (11/19/2019 8:44 AM CDT) Hemoglobin A1c 6.0(H) 4.8 - 5.6 % [facility] INSURANCE BILL Comment: ? . ? Prediabetes: 5.7 - 6.4 ? Diabetes: >6.4 ? Glycemic control for adults with diabetes: <7.0 FASTING Blood BLOOD SPECIMEN / Unknown 11/19/2019 8:44 AM CDT 11/19/2019 Narrative Resulting Agency Comment [facility]: [facility] [address] [facility] ??[facility] [id number] Kavita Garzon MD LAB - CHEMISTR Y ORDERABLES [facility] INSURANCE BILL [address] [place] [address] * (ABNORMAL) LDL CHOLESTEROL DIRECT (11/19/2019 8:43 AM CDT) LDL Direct 155(H) 0 - 99 mg/dL [facility] INSURANCE BILL Comment:FASTING 11/19/2019 8:43 AM CDT 11/19/2019 Narrative Resulting Agency Comment Lab Testing performed at: [facility] [address] ??[facility] [id number] Kavita Garzon MD LAB - CHEMISTR Y ORDERABLES [facility] INSURANCE BILL [address] [place] [address] * (ABNORMAL) LIPID PROFILE (11/19/2019 8:43 AM CDT) Cholesterol 230(H) 100 - 199 mg/dL [facility] INSURANCE BILL Triglycerides 154(H) 0 - 149 mg/dL [facility] INSURANCE BILL HDL Cholesterol 41 >39 mg/dL [facility] INSURANCE BILL VLDL Calculated 31 5 - 40 mg/dL [facility] INSURANCE BILL LDL Calculated 158(H) 0 - 99 mg/dL [facility] INSURANCE BILL Comment NOT NEEDED [facility] INSURANCE BILL Comment: FASTING Ancillary determined the test is not needed. 11/19/2019 8:43 AM CDT 11/19/2019 Narrative Resulting Agency Comment Lab Testing performed at: [facility] [address] ??[facility] [phone] Kavita Garzon MD LAB - CHEMISTR Y ORDERABLES [facility] INSURANCE BILL [address] [place] [address] Care Teams Regional Retail Sales Manager Relationship Specialty Start Date End Date Janet Corona MD [address] [place] [phone] PCP - General 05/25/22
--- OUTSIDE RECORDS SUMMARY | 2024-08-25 12:37 | XMS_ITS | Clinical Summary ---
Author Organization [facility] Address [address] [facility] Attn: Epic Prelude ADT [place] [address] Care Team Providers Care Nurse Reviewer Name Role Phone Unavailable Primary Care Provider Unavailabl e Social History Tobacco Use Types Packs/Day Years Used Date Smoking Tobacco: Never Assessed Sex and Gender Information Value Date Recorded Sex Assigned at Not on file Legal Sex Male 5:10 AM SERVICE TEAM LEADER Gender Identity Not on file Sexual Orientation Not on file Plan of Treatment Health Maintenance Due Date Last Done Comments DTAP/TDAP/TD VACCINES (1 - Tdap) 1981 COLORECTAL SCREENING 2007 Colorectal Cancer Screening 2007 FIT-DNA Q 3 years 2007 FIT/FOBT Q 1 year 2007 Flex Sig/CT Colonography Q 5 years 2007 ZOSTER VACCINE (1 of 2) 2012 INFLUENZA VACCINE (#1) 2024 RSV VACCINE (60+ or ) (1 - 1-dose 75+ series) 2037 PNEUMOCOCCAL VACCINE 0-64 YEARS Aged Out No longer eligible based on patient's age to complete this topic
--- OUTSIDE RECORDS SUMMARY | 2024-08-25 12:37 | XMS_ITS | Referral Summary ---
Author Organization [facility] [employer] Address [address] [place] [address] Care Team Providers Care Mixed Livestock Farmer Name Role Phone Janet Corona MD Primary Care Provider Source Comments [facility] [employer],non-owned Affiliates and Associated Physician Practices is amultiple site organization consisting of ambulatory clinics and hospital sitesin [place], [place], [place] and [place]. This disclosure is being madepursuant to the Care Everywhere program and may not contain all information available regarding this patient. Last updated 18.[facility] [employer] Allergies Active Allergy Reactions Criticality Noted Date [...] Administration Dates Next Due INFLUENZA VACCINE 05/05/2019 Social History Tobacco Use Types Packs/Day Years [...] Comments Blood Pressure 138/90 09/30/2019 2:03 PM METAL ROOFER Pulse 70 09/30/2019 2:03 PM METAL ROOFER Temperature 36.2 ??C (97.2 ??F) 09/30/2019 2:03 PM CS T Respiratory Rate - - Oxygen Saturation 98% 09/30/2019 2:03 PM METAL ROOFER Inhaled Oxygen Concentration - - Weight 113.4 kg (250 lb) 07/12/2022 8:29 AM METAL ROOFER Height 182.9 cm (6') 07/12/2022 8:29 AM METAL ROOFER Body Mass Index 33.91 07/12/2022 8:29 AM METAL ROOFER Plan of Treatment Not on file Procedures Procedure Name Priority Date/Time Associated Diagnosis Comments HEMOGLOBIN A1C Routine 11/19/2019 8:44 AM CDT Mixed hyperlipidemia Prediabetes Hypertriglyceridemia from Last 3 Months or Most Recently Relevant to Health Maintenance Results * (ABNORMAL) HEMOGLOBIN A1C (11/19/2019 8:44 AM CDT) Hemoglobin A1c 6.0(H) 4.8 - 5.6 % [facility] INSURANCE BILL Comment: ? . ? Prediabetes: 5.7 - 6.4 ? Diabetes: >6.4 ? Glycemic control for adults with diabetes: <7.0 FASTING Blood BLOOD SPECIMEN / Unknown 11/19/2019 8:44 AM CDT 11/19/2019 Narrative Resulting Agency Comment Lab Testing performed at: [facility] [place] [address] ??[place] [id number] Kavita Garzon MD LAB - CHEMISTR Y ORDERABLES [facility] INSURANCE BILL [address] [place] [address] from Last 3 Months or Most Recently Relevant to Health Maintenance Insurance Payer Benefit Plan / Group Subscriber ID Effective Dates Phone Address Type [facility] MEDICAID [id number] Effective for all dates [employer] CLAIMS DEPARTMENT [address] [place] [address] Medicaid Managed Care [facility] [place] [facility] [place] [id number] Effective for all dates [employer] CLAIM[employer] DEPARTMENT [address] [place] [address] Medicaid Managed Care [facility] [place] [facility] [place] [id number] Effective for all dates [employer] CLAIMS DEPARTMENT [address] [place] [address] Medicaid Managed Care [facility] [place] [facility] [place] [id number] Effective for all dates ATT[employer] CLAIMS DEPARTMENT [address] [place] [address] Medicaid Managed Care [facility] [place] [facility] [place] [id number] Effective for all dates ATT[employer] CLAIMS DEPARTMENT [address] [place] [address] Medicaid Managed Care [facility] [place] [facility] [place] [id number] Effective for all dates ATT[employer] CLAIMS DEPARTMENT [address] [place] [address] Medicaid Managed Care [facility] [place] [facility] [place] [id number] Effective for all dates ATT[employer] CLAIMS DEPARTMENT [address] [place] [address] Medicaid Managed Care [facility] [place] [facility] [place] [id number] Effective for all dates ATT[employer] CLAIMS DEPARTMENT [address] [place] [address] Medicaid Managed Care [facility] [place] [facility] [place] [id number] Effective for all dates ATT[employer] CLAIMS DEPARTMENT [address] [place] [address] Medicaid Managed Care [facility] [place] [facility] [place] [id number] Effective for all dates ATT[employer] CLAIMS DEPARTMENT [address] [place] [address] Medicaid Managed Care [facility] MEDICAID [id number] Effective for all dates ATT[employer] CLAIMS DEPARTMENT [address] [place] [address] Medicaid Managed Care [facility] MEDICAID [id number] Effective for all dates ATT[employer] CLAIMS DEPARTMENT [address] [place] [address] Medicaid Managed Care [facility] MEDICAID [id number] Effective for all dates ATT[employer] CLAIMS DEPARTMENT [address] [place] [address] Medicaid Managed Care [facility] MEDICAID [id number] Effective for all dates ATTN CLAIMS DEPARTMENT [address] [place] [address] Medicaid Managed Care [facility] MEDICAID [id number] Effective for all dates ATTN CLAIMS DEPARTMENT [address] [place] [address] Medicaid Managed Care [facility] MEDICAID [id number] Effective for all dates ATTN CLAIMS DEPARTMENT [address] [place] [address] Medicaid Managed Care [facility] MEDICAID [id number] Effective for all dates ATTN CLAIMS DEPARTMENT [address] [place] [address] Medicaid Managed Care [facility] MEDICAID [id number] Effective for all dates ATTN CLAIMS DEPARTMENT [address] [place] [address] Medicaid Managed Care [facility] MEDICAID [id number] Effective for all dates ATT[employer] CLAIMS DEPARTMENT [address] [facility] [place] [address] Medicaid Managed Care [facility] MEDICAID [id number] Effective for all dates ATT[facility] CLAIMS DEPARTMENT [address] [facility] [address] [place] [address] Medicaid Managed Care [facility] MEDICAID [id number] Effective for all dates ATT[facility] CLAIMS DEPARTMENT [address] [facility] [address] [place] [address] Medicaid Managed Care [facility] MEDICAID [id number] Effective for all dates ATTN CLAIMS DEPARTMENT [address] [facility], [address] [place] [address] Medicaid Managed Care [facility] MEDICAID [id number] Effective for all dates ATTN CLAIMS DEPARTMENT [address] [facility] [address] [place] [address] Medicaid Managed Care [facility] MEDICAID [id number] Effective for all dates ATTN CLAIMS DEPARTMENT [address] [facility] [address] [place] [address] Medicaid Managed Care [facility] MEDICAID [id number] Effective for all dates ATTN CLAIMS DEPARTMENT [address], [address] [place] [address] Medicaid Managed Care [facility] MEDICAID [id number] Effective for all dates ATTN CLAIMS DEPARTMENT [address] ANT[address], [address] [place] [address] Medicaid Managed Care [facility] MEDICAID [id number] Effective for all dates [address] [place] [phone] Medicaid Managed Care ADRIA,MARIS S Personal/Famil y Other [facility] [place] [address] ADRIA,MARIS S Personal/Famil y Other [address] [place] [phone] ADRIA,MARIS S Personal/Famil y Other [address] [place] [phone] ADRIA,MARIS S Personal/Famil y Other [address] [place] [phone] ADRIA,MARIS S Personal/Famil y Other [address] [place] [phone] ADRIA,MARIS S Personal/Famil y Other [address] [place] [phone] JULI COVINGTONE S Personal/Famil y Other [address] [place] [phone] ADRIAMARIS S Personal/Famil y Other [address] [place] [phone] ADRIAMARIS S Personal/Famil y Other [address] [place] [phone] ADRIAMARIS S Personal/Famil y Other [address] [place] [phone] ADRIAMARIS S Personal/Famil y Other [address] [place] [phone] ADRIAMARIS S Personal/Famil y Other [address] [place] [phone] ADRIA,MARIS S Personal/Famil y Other [address] [place] [phone] ADRIAMARIS S Personal/Famil y Other [address] [place] [phone] ADRIA,MARIS S Personal/Famil y Other [address] [place] [phone] ADRIA,MARIS S Personal/Famil y Other [address] [place] [phone] ADRIA,MARIS S Personal/Famil y Other [address] [place] [phone] ADRIA,MARIS S Personal/Famil y Other [address] [place] [phone] ADRIA,MARIS S Personal/Famil y Other [address] [place] [phone] ADRIA,MARIS S Personal/Famil y Other [address] [place] [phone] ADRIA,MARIS S Personal/Famil y Other [address] [place] [phone] Care Teams Mixed Livestock Farmer Relationship Specialty Start Date End Date Janet Corona MD [address] [place] [phone] PCP - General 05/25/22
--- OUTSIDE RECORDS SUMMARY | 2024-08-25 12:37 | XMS_ITS | Encounter Summary ---
Author Organization [employer] Address 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
--- OUTSIDE RECORDS SUMMARY | 2024-08-25 12:37 | XMS_ITS | Continuity of Care Document ---
Author Organization [facility] Address [address] [place] [address] Phone Care Team Providers Care Exhibitor Sales Name Role Phone Dorinda Coker Unavailable Unavailable Advance Directives Directive Yes / No Effective Date File Name No Information Encounters Encounter Description Practice Location Reason(s) For Visit Diagnoses Date Provider Providers Copied on Encounter [facility], [address] [address] [facility], [place], [place], [id number], [place] tel:[phone] [facility] No Information 5 Tommie Seth. [address], [address], [place], [place], [id number] , [place]. tel:[phone] Family History Family Member Type Diagnosis Age [...]
== END 2024-08-25 11:25 | disposition home or self-care (01) ==
LOC: ANHIMG 11:25
PROVIDERS: PCP Family Medicine; Visit Provider Family Medicine
DX: M25.511 Pain in right shoulder (principal)
CPT/HCPCS: 73030

== ENCOUNTER 2024-12-26 08:00 | Emergency (ER) | payer OTHER, SELFPAY ==
[2024-12-26] VITALS (8 sets, daily range): BP systolic 135–149; BP diastolic 78–97; PULSE 77–88; RESP 12–20; TEMP 36.4; O2SAT 97–100
--- NOTE | ~2024-12-26 | CT_ITS ---
EXAMINATION: CTA brain carotid DATE: 12/26/2024 10:00 CDT INDICATION: Right arm drift TECHNIQUE: Computed tomographic angiography (CTA) of the head was performed without and with 100 mL O mnipaque-350 intravenous contrast. CTA of the neck was performed with intravenous contrast. The dose- length product was 1882.13 mGy-cm. Maximum intensity projection and volume rendered 3D-reconstruction s were created by the technologist on a separate workstation. Automated exposure control and iterativ e reconstruction technique were employed. COMPARISON: CT dated 01/04/2016. FINDINGS: HEAD CT/CTA: Generalized atrophy. There has been progression of scattered moderate periventricular an d subcortical white matter changes, most likely related to small vessel ischemic disease (microangiop athy). No ventriculomegaly or midline shift. Basilar cisterns are patent. Normal navas-white different iation. No acute infarction, hemorrhage or mass. There is chronic mucosal thickening of the maxillary , ethmoid, sphenoid and frontal sinuses. Mastoids are pneumatized. No depressed skull fractures. There is intracranial atherosclerosis primarily involving the cavernous segments without evidence for significant stenosis, occlusion or aneurysm. Vertebral arteries are diminutive, although codominant. NECK CTA: There is atherosclerosis of the aortic arch. The origin of the common carotid arteries are widely patent. There is atherosclerotic change of the proximal internal carotid arteries. There is 33% stenosis of the proximal right internal carotid artery relative to normal distal artery lumen diameter (NASCET criteria). There is less than 20% stenosis of the proximal left internal carot id artery relative to normal distal artery lumen diameter. IMPRESSION: 1. 33% stenosis of the proximal right internal carotid artery relative to normal distal artery lumen diameter (NASCET criteria). 2. Less than 20% stenosis of the proximal left internal carotid artery relative to normal distal jose ry lumen diameter. 3: No acute intracranial abnormality. No significant vascular abnormality. 4: Pansinusitis which appears chronic. Reviewed, dictated and finalized at location A. IMPRESSION: 1. 33% stenosis of the proximal right internal carotid artery relative to josé miguel l distal artery lumen diameter (NASCET criteria). 2. Less than 20% stenosis of the proximal left internal carotid artery relative to normal distal artery lumen diameter. 3: No acute intracranial abnormality. No significant vascular abnormality. 4: Pansinusitis which appears chronic.
--- NOTE | ~2024-12-26 | XR_ITS ---
XR chest 2V 12/26/2024 09:19 Indication: Stroke symptoms Procedure: 2 view chest Comparison: 07/01/2023 Findings: Heart size normal. No focal air space disease, pulmonary edema, pleural effusion or suspect ed pneumothorax. There is diffuse idiopathic skeletal hyperostosis (DISH) of the thoracic spine. Impression: 1: No acute cardiopulmonary disease. Reviewed, dictated and finalized at location A. Impression: 1: No acute cardiopulmonary disease.
--- OUTSIDE RECORDS SUMMARY | 2024-12-26 08:02 | XMS_ITS | Encounter Summary ---
Author Organization [facility] Address [address] [place] [address] Phone Care Team Providers Care Electrical Equipment Assembler Name Role Phone Janet Corona MD Primary Care Provider Encounter Details Date Type Department Care Team (Latest Contact Info) Description 09/04/2023 Orders Only [facility] Latesha Garduno, RENZO [address] [facility] [address] [place] [address] Social History Tobacco Use Types Packs/Day Years Used Date Smoking Tobacco: Some Days Cigarettes Personal Safety Answer Date Recorded Getting School Help Needed Not on file 07/16 Sex and Gender Information Value Date Recorded Sex Assigned at Not on file 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
--- OUTSIDE RECORDS SUMMARY | 2024-12-26 08:02 | XMS_ITS | Clinical Summary ---
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 Gender Identity Not on file Sexual Orientation Not on file Obstetrics History Last Filed Vital Signs Vital Sign Reading Time Taken Comments Blood Pressure 155/83 10/14/2023 8:02 AM CDT Pulse 71 10/14/2023 8:02 AM CDT Temperature 36.7 C (98.1 F) 10/14/2023 8:02 AM CDT Respiratory Rate - - Oxygen Saturation 98% [...] C Screening 1962 Prostate Cancer Screening-PSA 1962 DTaP/Tdap/Td Vaccine (1 - Tdap) 1973 Hepatitis B Screening 1980 Regular Well Visit/Exam 18-64 1980 Pneumococcal vaccine <65 (1 of 2 - PCV) 1981 Zoster Vaccine (1 of 2) 2012 Covid-19 Vaccine ( - 2023-2 5 season) 2024 06/05/2023, 05/29/2022, 06/16/2021, Additional history exists Influenza Vaccine (Season Ended) 2025 06/05/2023, 05/02/2022, 05/08/2021, Additional history exists Insurance [facility] Care Teams Hoop Maker Relationship Specialty Start Date End Date Janet Corona MD [address] [place] [address] PCP - General Internal Medicine 06/19/23
--- OUTSIDE RECORDS SUMMARY | 2024-12-26 08:02 | XMS_ITS | Continuity of Care Document ---
Author Organization [facility] Address [address] [place] [address] Phone Care Team Providers Care Flight Tower Dispatcher Name Role Phone Aminata Douglas Unavailable Unavailable Advance Directives Directive Yes / No Effective Date File Name No Information Encounters Encounter Description Practice Location Reason(s) For Visit Diagnoses Date Provider Providers Copied on Encounter [facility], [address], [place], [place], [id number], [place] tel:[phone] [facility] No Information 5[address] Stella Coates. [address] , [address], [place], [address], [place]. tel:[phone] Family History Family Member Type Diagnosis Age At Onset No Information Payers Payer name Insurance type Covered alliance party ID Authoriza tion(s) No Information Social [...]
--- OUTSIDE RECORDS SUMMARY | 2024-12-26 08:02 | XMS_ITS | Referral Summary ---
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
--- OUTSIDE RECORDS SUMMARY | 2024-12-26 08:03 | XMS_ITS | Data Portability ---
Author Organization [facility] LUZDeandre Address [address] [place] [address] Assessment Encounter Date Assessment Date Assessment LastModified by Organization Details LastModified Time 08/09/2023 08/09/2023 He was advised not to raise his voice. He did not start the Bactrim until a week after he was prescribed, his basic STI tests are negative and with his history of shaving and the appearance of the lesions, I suspect that this is probably not failure of therapy. However, if there is no improvement, he can start Doxycycline. Side effects including allergic reactions were discussed. I have offered tp retest him an he has declined oajao Not available 08/09/2023 14:42:19 Plan of Treatment Reminders Order Date Submit Date Provider Last Modified By Organization Details Last Modified Time Details Appointments None recorde d. Lab RPR (rapid plasma reagin) , serum 2023 024 [facility], [address] [place] [address] [address], [address], [place], [address], 4 19:08:45 HIV 1 + 2, meaning ful use set 2023 024 [facility], [facility], [address], [place], [address], 4 19:08:45 chlamyd ia trachom atis + neisser ia gonorrh oeae + trichom onas vaginal is DNA panel, ERASTO+pro be, unspeci fied specime n 2023 024 [facility], [address] [place], [place] [address]Con[address], [address], [place], [address], 4 19:08:43 urinaly sis complet e, reflex culture 2023 024 [facility], [address], [address], [place], [address], 4 19:08:44 Referral audiolo gist referra l 2023 024 [email or web address] Not available 4 12:03:[address] referra l - Tinnitu s 2023 024 [facility], [address], [place], [address], 4 16:39:59 psychia trist referra l - Imtiaz 2023 024 [facility], [address] [place], [address], 4 15:12:55 evp general counsel ing referra l - IMTIAZ 2023 024 isabelle Wetzel [employer], [address] [place], [address], 4 12:35:24 Procedures None recorde d. Surgeries None recorde d. Imaging None recorde d. Medication Orders doxycyc line hyclate 100 mg capsule 2023 024 [email or web address][id number], [address], [place], [address], 4 11:18:03 Bactrim DS 800 mg-160 mg tablet 2023 024 [email or web address] #[id number], [address], [place], [address], 4 11:19:38 Patient TargetsNo targets recorded. Patient Instructions Encounter Date Encounter Id Patient Instructions Last Modified By Organization Details Last Modified Time 07/31/2023 [id number] Labs (old and ne w orders) Bactrim Follow up as previously scheduled oajao Not available 07/31/2023 11:33:04 08/09/2023 [id number] Continue Bactrim Start Doxycycline if there is no further improvement oajao Not available 08/09/2023 14:40:39 09/03/2023 [id number] tinnitus: care instructions oajao Not available 09/03/2023 11:08:50 anxiety disorder : care instructions oajao Not available 09/03/2023 11:08:50 ENT Labs as previously ordered Counseling Psychiatrist D/C Xanax Follow up in 6 weeks oajao Not available 09/03/2023 11:30:20 09/12/2023 [id number] Start Atorvastatin Pulmonology, ENT as referred Low CHO, low saturated fat diet Weight loss Follow up in 4 weeks oajao Not available 09/12/2023 13:21:08 Reason for Referral Psychiatrist Referral for Ge neralized anxiety disorder IMTIAZ Imtiaz Referring Physician: Janet Corona, Internal Medicine, Encounter Date: 09/03/2023 Counseling Referral for Gene ralized anxiety disorder IMTIAZ IMTIAZ Referring Physician: Janet Corona, Internal Medicine, Encounter Date: 09/03/2023 [employer] Consultant Referral fo r Tinnitus Tinnitus Tinnitus Referring Physician: Janet Corona, Internal Medicine, Encounter Date: 09/03/2023 [employer] Referral for Sen sorineural hearing loss of bilateral ears Referring Physician: Peter Costa, Otolaryngology, Encounter Date: 09/17/2023 Results Created Date Observation Date Name Description Value Unit Range Abnormal Flag Note LastModifiedBy Organization Detail LastModifiedTime 07/31/19 24 08/02/2023 CT, NG, TRICH VAG BY ERASTO chlamydia by ERASTO NEGATI VE negati ve Not Available [facility] ([facility]) [address] [facility], [place], [address], 08/02/2023 19:08:43 07/31/19 24 08/02/2023 CT, NG, TRICH VAG BY ERASTO gonococcus by ERASTO NEGATI VE negati ve Not Available [facility] ([facility]) [address] [facility], [place], [address], 08/02/2023 19:08:43 07/31/19 24 08/02/2023 CT, NG, TRICH VAG BY ERASTO trich vag by ERASTO NEGATI VE negati ve Not Available [facility] ([facility]) [address] [facility], [place], [address], 08/02/2023 19:08:43 07/31/19 24 08/01/2023 UA WITH CULTU RE REFLE X specific gravity 1.017 1.005- 1.030 Not Available [facility] ([facility]) [address] [facility], [place], [address], 08/02/2023 19:08:44 07/31/19 24 08/01/2023 UA WITH CULTU RE REFLE X pH 6.5 5.0-7. 5 Not Available [facility] ([facility]) [address] [facility], [place], [address], 08/02/2023 19:08:44 07/31/19 24 08/01/2023 UA WITH CULTU RE REFLE X urine-color YELLOW yellow Not Available [facility]) [address] [place], [address], 08/02/2023 19:08:44 07/31/19 24 08/01/2023 UA WITH CULTU RE REFLE X appearance CLEAR clear Not Available [facility] ([facility]) [address] [place], [address], 08/02/2023 19:08:44 07/31/19 24 08/01/2023 UA WITH CULTU RE REFLE X WBC esterase NEGATI VE negati ve Not Available [facility] ([facility]) [address] [place], [address], 08/02/2023 19:08:44 07/31/19 24 08/01/2023 UA WITH CULTU RE REFLE X protein TRACE negati ve/tra ce Not Available [facility] ([facility]) [address], [place], [address], 08/02/2023 19:08:44 07/31/19 24 08/01/2023 UA WITH CULTU RE REFLE X glucose NEGATI VE negati ve Not Available [facility] ([facility]) [address], [place], [address], 08/02/2023 19:08:44 07/31/19 24 08/01/2023 UA WITH CULTU RE REFLE X ketones NEGATI VE negati ve Not Available [facility] ([facility]) [address] [facility], [place], [address], 08/02/2023 19:08:44 07/31/19 24 08/01/2023 UA WITH CULTU RE REFLE X occult blood NEGATI VE negati ve Not Available [facility] ([facility]) [address] [facility], [place], [address], 08/02/2023 19:08:44 07/31/19 24 08/01/2023 UA WITH CULTU RE REFLE X bilirubin NEGATI VE negati ve Not Available [facility] ([facility]) [address] [facility], [place], [address], 08/02/2023 19:08:44 07/31/19 24 08/01/2023 UA WITH CULTU RE REFLE X urobilinogen ,semi-qn 0.2 mg/dL 0.2-1. 0 Not Available [facility] ([facility]) [address] [facility], [place], [address], 08/02/2023 19:08:44 07/31/19 24 08/01/2023 UA WITH CULTU RE REFLE X nitrite, urine NEGATI VE negati ve Not Available [facility] ([facility]) [address] [facility], [place], [address], 08/02/2023 19:08:44 07/31/19 24 08/01/2023 UA WITH CULTU RE REFLE X microscopic examination COMMEN T Micro scopi c not indic ated and not perfo rmed. Not Available [facility] ([facility]) [address] [facility], [place], [address], 08/02/2023 19:08:44 07/31/19 24 08/01/2023 UA WITH CULTU RE REFLE X urinalysis reflex COMMEN T This speci men will not refle x to a Urine Cultu re. Not Available [facility] ([facility]) [address] [facility], [place], [address], 08/02/2023 19:08:44 07/31/19 24 08/01/2023 RPR, RFX QN RPR/C ONFIR M TP RPR NON REACTI VE nonrea ctive Not Available [facility] ([facility]) [address] [facility], [place], [address], 08/02/2023 19:08:45 07/31/19 24 08/01/2023 HIV AB/P2 4 AG WITH REFLE X HIV Ab/P24 Ag screen NON REACTI VE nonrea ctive HIV Negat karan HIV-1 /HIV- 2 antib odies and HIV-1 p24 antig en were NOT detec joselito. There is no labor atory evide nce of HIV infec tion. Not Available [facility] ([facility]) [address] [facility], [place], [address], 08/02/2023 19:08:45 08/16/19 24 08/17/2023 PTH INTAC T+FINA CIUM, IONIZ ED calcium, ionized, serum 5.1 mg/dL 4.5-5. 6 Not Available [facility] ([facility]) [address] [facility] [place], [address], 08/21/2023 15:21:17 08/16/19 24 08/21/2023 PTH INTAC T+FINA CIUM, IONIZ ED PTH, intact - pg/mL [facility] was unabl e to colle ct suffi cient speci men to perfo rm the follo wing test( s), and is provi ding the patie nt with re-co llect ion instr uctio ns. Conta cted Vera Willi s on 08/21 Not Available [facility] ([facility]) [address] [facility], [place], [address], 08/21/2023 15:21:17 08/16/19 24 08/17/2023 VITAM IN D, 25-HY DROXY vitamin D, 25-hydroxy 16.3 NG/mL 30.0-1 00.0 below low normal Vitam in D defic iency has been defin ed by the Insti tute of Medic ine and an Endoc rine Socie ty pract ice guide line as a level of serum 25-OH vitam in D less than 20 ng/mL (1,2) . The Endoc rine Socie ty went on to furth er defin e vitam in D insuf ficie ncy as a level betwe en 21 and 29 ng/mL (2). 1. IOM (Inst itute of Medic ine). 2009. Dieta ry refer ence mariaelena es for calci um and D. Natasha baires [place]: The Natio nal [facility] Press . 2. Brigida radford [place], Negin mueller [place], Shahriar off-F errar i NEGRETE, et al. Evalu ation , treat ment, and preve ntion of vitam in D defic iency : an Endoc rine Socie ty clini fina pract ice guide line. JCEM. 2010; 96(7) :1911 -30. Not Available [facility] ([facility]) [address] [facility], [place], [address], 08/21/2023 15:21:17 08/16/19 24 08/21/[address] PROBL EM request problem TNP [facility] was unabl e to colle ct suffi cient speci men to perfo rm the follo wing test( s), and is provi ding the patie nt with re-co llect ion instr uctio ns. TEST: [id number] 0 PTH, Intac t Panel : [id number] Conta cted Vera Willi s on 08/21 Not Available [facility] ([facility]) [address] [place], [address], 08/21/2023 15:21:16 09/04/19 24 09/05/2023 LIPID PANEL cholesterol, total 212 mg/dL 100-19 9 above high normal Not Available [facility] ([facility]) [address] [place], [address], 09/05/2023 06:23:22 09/04/19 24 09/05/2023 LIPID PANEL triglyceride s 281 mg/dL 0-149 above high normal Not Available [facility] ([facility]) [address] [place], [address], 09/05/2023 06:23:22 09/04/19 24 09/05/2023 LIPID PANEL HDL cholesterol 46 mg/dL >39 Not Available [facility]) [address] [place], [address], 09/05/2023 06:23:22 09/04/19 24 09/05/2023 LIPID PANEL VLDL cholesterol fina 49 mg/dL 5-40 above high normal Not Available [facility] ([facility]) [address] [place], [address], 09/05/2023 06:23:22 09/04/19 24 09/05/2023 LIPID PANEL LDL chol calc ([facility]) 117 mg/dL 0-99 above high normal Not Available [facility] ([facility]) [address] [place], [address], 09/05/2023 06:23:22 09/04/19 24 09/05/2023 BASIC METAB OLIC PANEL (7) glucose 108 mg/dL 70-99 above high normal Not Available [facility] ([facility]) [address] [place], [address], 09/05/2023 06:23:22 09/04/19 24 09/05/2023 BASIC METAB OLIC PANEL (7) BUN 14 mg/dL 8-27 Not Available [facility] ([facility]) [address] [place], [address], 09/05/2023 06:23:22 09/04/19 24 09/05/2023 BASIC METAB OLIC PANEL (7) creatinine 0.98 mg/dL 0.76-1 .27 Not Available [facility] ([facility]) [address] [place], [address], 09/05/2023 06:23:22 09/04/19 24 09/05/2023 BASIC METAB OLIC PANEL (7) eGFR 88 mL/mi n/1.7 3 >59 Not Available [facility] ([facility]) [address] [place], [address], 09/05/2023 06:23:22 09/04/19 24 09/05/2023 BASIC METAB OLIC PANEL (7) BUN/creatini ne ratio 14 10-24 Not Available [facility]) [address] [place], [address], 09/05/2023 06:23:22 09/04/19 24 09/05/2023 BASIC METAB OLIC PANEL (7) sodium 142 mmol/ L 134-14 4 Not Available [facility] ([facility]) [address] [place], [address], 09/05/2023 06:23:22 09/04/19 24 09/05/2023 BASIC METAB OLIC PANEL (7) potassium 4.6 mmol/ L 3.5-5. 2 Not Available [facility] ([facility]) [address] [facility], [place], [address], 09/05/2023 06:23:22 09/04/19 24 09/05/2023 BASIC METAB OLIC PANEL (7) chloride 103 mmol/ L 96-106 Not Available [facility] ([facility]) [address] [facility], [place], [address], 09/05/2023 06:23:22 09/04/19 24 09/05/2023 BASIC METAB OLIC PANEL (7) carbon dioxide, total 25 mmol/ L 20-29 Not Available [facility] ([facility]) [address] [facility], [place], [address], 09/05/2023 06:23:22 09/04/19 24 09/05/2023 CBC WITH DIFFE RENTI AL/PL ATELE T WBC 6.8 x10e3 /uL 3.4-10 .8 Not Available [facility] ([facility]) [address] [facility], [place], [address], 09/05/2023 06:23:23 09/04/19 24 09/05/2023 CBC WITH DIFFE RENTI AL/PL ATELE T RBC 4.69 x10e6 /uL 4.14-5 .80 Not Available [facility] ([facility]) [address] [facility], [place], [address], 09/05/2023 06:23:23 09/04/19 24 09/05/2023 CBC WITH DIFFE RENTI AL/PL ATELE T hemoglobin 14.4 g/dL 13.0-1 7.7 Not Available [facility] ([facility]) [address] [facility] [place] [place], [address], 09/05/2023 06:23:23 09/04/19 24 09/05/2023 CBC WITH DIFFE RENTI AL/PL ATELE T hematocrit 43.5 % 37.5-5 1.0 Not Available [facility] ([facility]) [address] [facility], [place], [address], 09/05/2023 06:23:23 09/04/19 24 09/05/2023 CBC WITH DIFFE RENTI AL/PL ATELE T MCV 93 fL 79-97 Not Available [facility] ([facility]) [address] [facility], [place], [address], 09/05/2023 06:23:23 09/04/19 24 09/05/2023 CBC WITH DIFFE RENTI AL/PL ATELE T MCH 30.7 pg 26.6-3 3.0 Not Available [facility] ([facility]) [address] [facility], [place], [address], 09/05/2023 06:23:23 09/04/19 24 09/05/2023 CBC WITH DIFFE RENTI AL/PL ATELE T MCHC 33.1 g/dL 31.5-3 5.7 Not Available [facility] ([facility]) [address] [facility], [place], [address], 09/05/2023 06:23:23 09/04/19 24 09/05/2023 CBC WITH DIFFE RENTI AL/PL ATELE T RDW 12.4 % 11.6-1 5.4 Not Available [facility] ([facility]) [address] [facility], [place], [address], 09/05/2023 06:23:23 09/04/19 24 09/05/2023 CBC WITH DIFFE RENTI AL/PL ATELE T platelets 190 x10e3 /uL 150-45 0 Not Available [facility] ([facility]) [address] [facility], [place], [address], 09/05/2023 06:23:23 09/04/19 24 09/05/2023 CBC WITH DIFFE RENTI AL/PL ATELE T neutrophils 58 % notest ab. Not Available [facility] ([facility]) [address] [facility], [place], [address], 09/05/2023 06:23:23 09/04/19 24 09/05/2023 CBC WITH DIFFE RENTI AL/PL ATELE T lymphs 24 % notest ab. Not Available [facility] ([facility]) [address] [place], [address], 09/05/2023 06:23:23 09/04/19 24 09/05/2023 CBC WITH DIFFE RENTI AL/PL ATELE T monocytes 9 % notest ab. Not Available [facility] ([facility]) [address] [place], [address], 09/05/2023 06:23:23 09/04/19 24 09/05/2023 CBC WITH DIFFE RENTI AL/PL ATELE T eos 8 % notest ab. Not Available [facility] ([facility]) [address] [place], [address], 09/05/2023 06:23:23 09/04/19 24 09/05/2023 CBC WITH DIFFE RENTI AL/PL ATELE T basos 1 % notest ab. Not Available [facility] ([facility]) [address] [place], [address], 09/05/2023 06:23:23 09/04/19 24 09/05/2023 CBC WITH DIFFE RENTI AL/PL ATELE T neutrophils (absolute) 4.0 x10e3 /uL 1.4-7. 0 Not Available [facility] ([facility]) [address] [place], [address], 09/05/2023 06:23:23 09/04/19 24 09/05/2023 CBC WITH DIFFE RENTI AL/PL ATELE T lymphs (absolute) 1.6 x10e3 /uL 0.7-3. 1 Not Available [facility] ([facility]) [address] [place], [address], 09/05/2023 06:23:23 09/04/19 24 09/05/2023 CBC WITH DIFFE RENTI AL/PL ATELE T monocytes(ab solute) 0.6 x10e3 /uL 0.1-0. 9 Not Available [facility] ([facility]) [address] [facility], [place], [address], 09/05/2023 06:23:23 09/04/19 24 09/05/2023 CBC WITH DIFFE RENTI AL/PL ATELE T eos (absolute) 0.5 x10e3 /uL 0.0-0. 4 above high normal Not Available [facility] ([facility]) [address] [facility], [place], [address], 09/05/2023 06:23:23 09/04/19 24 09/05/2023 CBC WITH DIFFE RENTI AL/PL ATELE T baso (absolute) 0.0 x10e3 /uL 0.0-0. 2 Not Available [facility] ([facility]) [address] [facility], [place], [address], 09/05/2023 06:23:23 09/04/19 24 09/05/2023 CBC WITH DIFFE RENTI AL/PL ATELE T immature granulocytes 0 % notest ab. Not Available [facility] ([facility]) [address] [place], [address], 09/05/2023 06:23:23 09/04/19 24 09/05/2023 CBC WITH DIFFE RENTI AL/PL ATELE T immature grans (abs) 0.0 x10e3 /uL 0.0-0. 1 Not Available [facility] ([facility]) [address] [place], [address], 09/05/2023 06:23:23 09/04/19 24 09/04/2023 HEMOG LOBIN A1C hemoglobin A1C 6.3 % 4.8-5. 6 above high normal Predi abete s: 5.7 - 6.4 Diabe arun: >6.4 Glyce minal contr ol for adult s with diabe arun: <7.0 Not Available [facility] ([facility]) [address], [place], [address], 09/05/2023 06:23:25 07/01/20 23 07/01/2023 XR, chest No observ ation record ed. [address], [place], [address], 07/23/2023 11:50:44 07/09/20 23 07/09/2023 compl ete PFT w/ post [facility] hodil ator darvin metry * No observ ation record ed. [address], [place], [address], 07/23/2023 11:50:44 07/09/20 23 07/09/2023 [place], [facility] ardio gram, trans thora cic, compl ete, w/ color flow No observ ation record ed. [address], [place], [address], 07/23/2023 11:50:44 07/12/20 23 07/12/2023 LDCT, chest , for lung cance r scree luc No observ ation record ed. [address] [facility], [place], [address], 07/23/2023 11:50:43 Result Notes None recorded. Problems Name Problem SNOMED Code Status Onset Date Resolution Date Notes Provider Name and Address Organization Details Recorded Time Thoracic back pain 879014171 Active 2017 Janet Corona MD Attn: Kevin herring,[address] [place], [address], [place] - [facility] 4 12:37:49 Chronic neck pain 4065131121724 Active 2017 Janet Corona MD Attn: Kevin herring,[address] [facility], [place], [address], [place] [facility] 4 12:37:49 Screening for malignant neoplasm of colon Active 2020 Janet Corona MD Attn: Kevin herring,[address] [place], [address], [place] [facility] 4 12:37:49 Colonoscopy declined 3959060344557 00 Active 2020 Janet Corona MD Attn: Kevin herring,[address] [place], [address], [place] [facility] 4 12:37:49 Echocardiog merlin abnormal 791452470 Active 2022 Janet Corona MD Attn: Kevin herring,[address] [place], [address], [place] [facility] 4 12:37:49 Multiple nodules of lung 429671744 Active 2022 Janet Corona MD Attn: Robsonsherice herring,[address] [place], [address], [place] [facility] 4 12:37:50 Vitamin D deficiency 30762015 Active 2023 Janet Corona MD Attn: Robsonsherice herring,[address] [place], [address], [place] [facility] 4 12:37:49 Acute sinusitis 96467629 Active Janet Corona MD Attn: Robsonsherice herring,[address] [place], [address], [place] [facility] 4 12:37:49 Acute bronchitis 31650833 Active Janet Corona MD Attn: Kevin nevaeh,[address] [place], [address], [place] [facility] 4 12:37:49 Generalized anxiety disorder 42195878 Active Janet Corona MD Attn: Kevin nevaeh,[address] [place], [address], [place] [facility] 4 12:37:49 Skin lesion 58702082 Active Janet Corona MD Attn: Accountin g,[address], [place], [address], [place] [facility] 4 12:37:50 Elevated blood-press ure reading without diagnosis of hypertensio n 798435110 Active Janet Corona MD Attn: Accountin g,[address], [place], [address], [place] [facility] 4 12:37:49 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 Janet Corona MD Attn: Accountin g,[address] [facility], [place], [address], [place] [facility] 4 12:37:50 Impaired fasting glycemia 391977845 Active Janet Corona MD Attn: Accountin g,[address] [facility], [place], [place], [address] [place] [address] 2, [place] [facility] 4 12:37:49 Benign hypertensio n 11396391 Active Janet Corona MD Attn: Accountin g,[address] [facility], [place], [address], [place] [facility] 4 12:37:49 Thrombocyto penic disorder 418962959 Active Janet Corona MD Attn: Accountin g,[address] [facility], [place], [address], [place] [facility] 4 12:37:49 Alcoholism 8942642 Active Janet Corona MD Attn: Accountin g,[address] [facility], [place], [address], [place] [facility] 4 12:37:50 Steatohepat itis 631835169 Active Janet Corona MD Attn: Accountin g,[address] [facility], [place], [address], [place] [facility] 4 12:37:50 Cyst of skin 381585481 Active Janet Corona MD Attn: Accountin g,[address] [facility], [place], [place], [address] [place] [address] 2, [facility] - [facility] 4 12:37:49 Contact dermatitis 78653733 Active Janet Corona MD Attn: Kevin herring,[address] [facility], [place], [address] [place] [address] 2, [facility] - [facility] 4 12:37:49 Eruption 308828449 Active Janet Corona MD Attn: Kevin herring,[address] [facility], [place], [address] [place] [address] 2, [facility] - S[facility] 4 12:37:49 Problem Notes None recorded. Procedures Surgical History Date Name Laterality Status Provider Name and Address Organization Details Recorded Time 4 colonoscopy completed Janet Corona MD Attn: Accounting,[address] [place], [place], [address] [place] [address], [facility] - [facility] 10/05/2022 15:53:20 Hernia Repair completed Janet alba MD Attn: Accounting,[address] [facility], [place], [place], [address] [place] [address], [facility] 06/07/2015 14:57:59 Other completed Janet Corona MD Attn: Accounting,[address] [place], [place], [address] [place] [address], [facility] - [facility] 06/07/2015 14:57:59 Imaging Results None recorded. Procedure Notes None recorded. Medical Equipment None Reported. Allergies Allergen ID Allergen Name Allergen Category Reaction Reaction Severity Criticality Documentation Date Start Date Code Code System Note Provider Name and Address Organization Details Recorded Time 235832 Non-stero idal anti-infl ammatory agent (product) medicatio n diarrhea Not available Not available 09/02/2017 12047 005 SNOMED Janet Corona MD Attn: Kevin herring,[address] [facility], [place], [place], [address] [place] [address] 2, [facility] - [facility] 8 19:06:36 361346 Product containin g 3-hydroxy -3-methyl glutaryl- coenzyme A reductase inhibitor (product) medicatio n diarrhea Not available Not available 09/02/2017 63747 009 BARI Corona MD Attn: Kevin herring,[address], [place], [address], [place] - [facility] 8 19:07:05 664848 gembety il medicatio n itching mild Not available 10/03/20182018 4719 RxNorm Janet Corona MD Attn: Kevin g,[address], [place], [address], [place] - [facility] 9 10:13:10 33675 Nubain medicatio n irregular heart rate Not available Not available 06/07/2015 7550 RxNorm October AIDEE Waters [facility], [place] - [facility] 5 14:43:36 Medications Name Sig Start Date Stop Date Status Note LastModified by Organization Details LastModified Time losartan 50 mg tablet Take 1 tablet every day by oral route as directed for 90 days. 06/25 completed Not Available Not Available Not Available atorvasta tin 40 mg tablet TAKE ONE TABLET BY MOUTH ONCE DAILY 08/29 completed Not Available Not Available Not Available terbinafi ne HCl 1 % topical cream APPLY TO THE AFFECTED AND SURROUND ING AREAS OF SKIN BY TOPICAL ROUTE ONCE DAILY 09/03 completed Not Available Not Available Not Available azelastin e 0.05 % eye drops PLACE 1 DROP IN LEFT EYE TWICE A DAY FOR 5 DAYS 06/11 completed Not Available Not Available Not Available doxycycli ne hyclate 100 mg capsule Take 1 capsule twice a day by oral route as directed for 7 days. 09/03 completed Not Available Not Available Not Available atorvasta tin 20 mg tablet Take 1 tablet every day by oral route as directed for 30 days. active Not Available Not Available No t Available ipratropi um 0.5 mg-albute rol 3 mg (2.5 mg base)/3 mL nebulizat ion soln 3 mL by inhalati on route. 05/25 completed Not Available Not Available Not Available cetirizin e 10 mg tablet TAKE 1 TABLET BY MOUTH EVERY DAY 06/11 completed Not Available Not Available Not Available azithromy yina 250 mg tablet TAKE 2 TABLETS BY MOUTH TODAY, THEN TAKE 1 TABLET DAILY FOR 4 DAYS DIRECTED 06/11 completed Not Available Not Available Not Available pravastat in 40 mg tablet Take 1 tablet every day by oral route for 90 days. 12/26 completed Not Available Not Available Not Available ibuprofen 800 mg tablet 07/09 completed Not Available Not Available Not Available fluconazo le 150 mg tablet TAKE 1 TABLET BY MOUTH EVERY DAY DIRECTED FOR 1 DAY 07/31 completed Not Available Not Available Not Available valacyclo vir 1 gram tablet TAKE 2 TABLETS BY MOUTH EVERY 12 HOURS DIRECTED FOR 1 DAY. (Follow up) 08/09 completed New prescrip tion for suppress ion Not Available Not Available Not Available meloxicam 15 mg tablet Take 1 tablet every day by oral route with meals for 30 days. 09/25 completed Not Available Not Available Not Available prednison e 20 mg tablet TAKE 1 TABLET BY MOUTH ONCE DAILY FOR 5 DAYS 06/11 completed Not Available Not Available Not Available clobetaso l 0.05 % topical cream APPLY A THIN LAYER TO THE R. lateral chest wall only BY TOPICAL ROUTE 2 TIMES PER DAY for 5 days 08/03 completed Not Available Not Available Not Available valsartan 80 mg tablet TAKE 1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 7231 31136 N28.9 Mood disorder 75494073 F 39 Musculoskeletal pain 279 498198 M79.10 Most likely soft tissue injury from his recent fall [id number] ABRIL WEINER (Peds) [address] [place] [address] 49887-265 0 05/02/2022 14:51:12 05/09/2022 18:48:57 Administration of influenza vaccine 09540045 Z23 [id number] MD Louis London (Adult Med) [address] [place] [address] 78223-813 0 05/24/2022 14:40:59 05/25/2022 11:32:07 Pain of left knee joint 7996732569 86708 M25.562 Screening for malignant neoplasm of colon 855709856 Z12.11 Screening for malignant neoplasm of prostate 903144569 Z12.5 Impaired f asting glycemia 711876806 R73.01 Body mass index 30+ - obesity 564927526 Z68.32 Hyperlipidemia 41880148 E78.5 D69.6 Immunization advised 310 885155 Z71.9 [id number] MD Louis London (Adult Med) [address] [place] [address] 78804-325 0 10/05/2022 15:01:59 10/05/2022 15:24:28 Impaired fasting glycemia 308332253 R73.01 Body mass index 30+ - obesity 623366429 Z68.32 Hyperlipidemia 39785350 E78.5 D69.6 Follow-up visit 58641837 9 Z09 [id number] MD Louis London (Adult Med) [address] [place] [address] 82700-360 0 04/05/2023 15:28:43 04/09/2023 09:57:22 Impaired fasting glycemia 554402031 R73.01 Hyperlipidemia 80821883 E78.5 D69.6 Follow-up visit 54237662 9 Z09 Medication monitoring 39 7163734 Z51.81 Benign hypertension 1072 5009 I10 Stable on Valsartan/ HCTZ. Impotence 575070420 N52. 9 Viagra PRN Recurrent herpes simplex 99217207 B00.9 See the messageSee the new eRx for the maintenanc e dose of Valacyclov ir [id number] MD Louis London (Adult Med) [address] [place] [address] 13090-610 0 06/11/2023 10:03:25 06/13/2023 13:46:07 Anxiety 12417632 F41.9 OV 10/21/2017I have explained to Mr. Nidia that I do not prescribe Xanax, a mental health referral was discussed, I don't need a psychiatri st. He was referred to therapy, a recommenda tion which he has also refused. There are other ways to manage his anxiety, his demeanor and current state of mind would not make it possible to discuss his other options today. Dyspnea on exertion 6084 5006 R06.09 Nicotine dependence 5629 4008 Z87.891 Discussed [id number] MD Louis London (Adult Med) [address] [place] [address] 82220-801 0 07/23/2023 11:16:35 07/24/2023 12:54:43 Echocardiogram abnormal 158397648 R93.1 2 D echocardio gram done on 07/09/2023 ;EF 60-65%DDMi ld L. ventricula r thicknessM ild TRMild aortic valve calcificat ion Multiple n odules of lung 591144518 R91.8 LDCT 07/12/2023 , scattered 1-2 mm pulmonary nodules Tinea cruris 472028436 B 35.6 Dyspnea on exertion 6084 5006 R06.09 [id number] MD Louis London (Adult Med) [address] [place] [address] 83446-449 0 07/31/2023 10:52:14 08/01/2023 09:29:45 Skin lesion 52346889 L98.9 Folliculit is? Venereal d isease screening 523049557 Z11.3 [id number] MD Louis London (Adult Med) [address] [place] [address] 87254-264 0 08/09/2023 14:09:47 08/14/2023 15:23:18 Folliculitis 27241667 L73.9 Noncomplia nce with treatment 9947810 Z91.802 [id number] MD Louis London (Adult Med) [address] [place] [address] 62155-033 0 09/03/2023 10:54:01 09/04/2023 12:54:02 Tinnitus 29465204 H93.19 Generalize d anxiety disorder 68565612 F41.1 Vitamin D deficiency 347 01521 E55.9 Labs 08/16/2023 Vitamin D 16.3 [id number] Janet Corona MD [facility] (Adult Med) [address] [place] [address] 09/12/2023 12:18:53 09/13/2023 08:24:51 Tinnitus 14438912 H93.19 Generalize d anxiety disorder 91379117 F41.1 Impaired f asting glycemia 434876504 R73.01 [id number] Peter Costa MD [facility] [address] [place] [address] 09/17/2023 12:06:18 09/20/2023 14:24:37 Sensorineural hearing loss of bilateral ears 618144505 H90.3 follow-up after audiogram Bilateral tinnitus 43836 35805 102 H93.13 Health Concerns Section Related Observation LastModified by Organization Detai ls LastModified Time None Recorded Concern Status LastModified by Organization Details LastModified Time None Recorded Advance Directives Directive N: Payers Encounter Date Sequence Insurance Name Policy Number Policy Tena Covered Member ID Tena Member ID Guarantor Name 07/31/[address] [facility] ON OR AFTER 01/26/21 (MEDICAID REPLACEMENT - HMO) Lamont Jacob [id number] Lamont Jacob 08/09/[address] [facility] ON OR AFTER 01/26/21 (MEDICAID REPLACEMENT - HMO) Lamont Jacob [id number] Lamont Jacob 09/03/[address] [facility] ON OR AFTER 01/26/21 (MEDICAID REPLACEMENT - HMO) Lamont Jacob [id number] Lamont Jacob 09/12/2023 1 [facility] ON OR AFTER 01/26/21 (MEDICAID REPLACEMENT - HMO) Lamont Jacob [id number] Lamont Jacob 09/17/[address] [facility] ON OR AFTER 01/26/21 (MEDICAID REPLACEMENT - HMO) Lamont Jacob [id number] Lamont Jacob Notes Date Note Type Note Provider Name and Address Organization Details Recorded Time 07/31/2023 text/html I think I got a sexually transmitted disease, I had sex with a bar hole He apparently had unprotected sex on 05/29/2023, a few day later he had what looked like an abscess which he treated with a topical antibiotic with improvement. He then noticed another lesion when he woke up a couple of days ago. He denies any dysuria, penile discharge, fever, malaise but he is worried that he may have an STD. Janet Corona MD Attn: Accounting[address] [place], [address], [facility] 07/31/2023 13:24:27 08/09/2023 text/html Is it genital warts? Mr Nidia sylvester, he is very worried about the lesions in his pubic area, he was prescribed Bactrim on 07/31/2023 but only started taking it on . he is concerned that he may have warts and that he may pass on a STD to his GF. There is no reported penile discharge or dysuria and he feels otherwise well. When he was called with his negative STD screening tests, he admitted that he had shaved his pubic area. Janet Corona MD Attn: Accounting[address] [place], [address], [facility] 08/09/2023 14:44:35 09/03/2023 text/html Anxiety/Depressi on Reported bypatient.Quality: symptoms worse in the evening;symptoms worse during the day;increased anxiety Severity:denies suicidal ideations; able to maintain relationships;inte rference with household activities;interfe rence with work Duration:frequent; symptoms lasting over 2 weeks Modifying Factors:medication s as directed Associated Symptoms:denies homicidal ideations; no significant weight gain; no significant weight loss; no visual/auditory hallucinations; no delusions; no shortness of breath; no crying spells; no panic; no isolation; sleeping well; appetite good; energy good; no apathy; maintaining functionality;high irritability;anxie ty;palpitations I took a hot rag, I think I burnt myselfI bought 10 or 12 Xanax off some girl Mr Nidia sylvester, he was seen by the solar installer and his medications were changed. He was also seen at urgent care and he was started on Vistaril. He also bought some Alprazolam on the street. He complains of ringing in his ears, L>R Janet Corona MD Attn: Accounting[address] [facility], [place], [address], [facility] 09/03/2023 13:16:09 09/12/2023 text/html I am scaredTh at is the cause of my stressThere has to be a reason why I still have shortness of breath? Mr Jacob returns, he is crying and pacing around the room. He states that I never gave him anything to calm him down and that he is uncertain as to why he is still short of breath. He has been referred to a mortgage sales manager, ENT and psychiatrist as he still feels stressed. He could not tolerate the Rosuvastatin due to MSK pain and his solar installer changed it to Atorvastatin which he is yet to start. Janet Corona MD Attn: Accounting[address] [facility], [place], [address], [facility] 09/12/2023 13:21:31 09/17/2023 text/html patient complaining of ringing in his ears. He says becoming an issue for him. He has worked in noisy environments in the past. He wears ear protection now. He has not had any infection or trauma. Peter Costa MD [address] [place], [address], [facility] 09/17/2023 12:26:46
--- OUTSIDE RECORDS SUMMARY | 2024-12-26 08:03 | XMS_ITS | Continuity of Care Document ---
Author Organization [facility] Address [address] [place] [address] Phone Care Team Providers Care Room Service Supervisor Name Role Phone Tommie Mace, Dorinda Unavailable Unavai lable Advance Directives Directive Yes / No Effective Date File Name No Information Encounters Encounter Description Practice Location Reason(s) For Visit Diagnoses Date Provider Providers Copied on Encounter [facility], [address] [place], [place], [id number], [place] tel:[phone] [facility] No Information 5 Tommie Seth. [address], [address], [place], [place], [id number] , [place]. tel: [phone] Family History Family Member Type Diagnosis Age [...]
--- OUTSIDE RECORDS SUMMARY | 2024-12-26 08:03 | XMS_ITS | Encounter Summary ---
Author Organization [employer] Address 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
--- OUTSIDE RECORDS SUMMARY | 2024-12-26 08:03 | XMS_ITS | Clinical Summary ---
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
--- OUTSIDE RECORDS SUMMARY | 2024-12-26 08:03 | XMS_ITS | Encounter Summary ---
Author Organization [employer] [facility] Address 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
--- OUTSIDE RECORDS SUMMARY | 2024-12-26 08:03 | XMS_ITS | Encounter Summary ---
Author Organization [facility] Address [address] [place] [address] Phone Care Team Providers Care Cancer Program Consultant Name Role Phone Janet Corona MD Primary Care Provider Encounter Details Date Type Department Care Team (Latest Contact Info) Description 07/01/2023 Orders Only [facility] CARDIOLOGY Latesha Garduno, RN [address] 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
--- OUTSIDE RECORDS SUMMARY | 2024-12-26 08:03 | XMS_ITS | Encounter Summary ---
Author Organization [facility] Address [address] [place] [address] Care Team Providers Care Chemistry Research Assistant Name Role Phone Unavailable Primary Care Provider Unavailabl e Encounter Details Date Type Department Care Team (Late st Contact Info) Description 01/02/2001 Outpatient Historical [facility] Internal Medicine [facility] [place] [facility] [address] [address] Mario Soria MD [address] [place] [address] Social History Tobacco Use Types Packs/Day Years Used Date Smoking Tobacco: Never Assessed Sex and Gender Information Value Date Recorded Sex Assigned at Not on file 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
--- OUTSIDE RECORDS SUMMARY | 2024-12-26 08:03 | XMS_ITS | Clinical Summary ---
Author Organization [facility] Address [address] [place] [address] Care Team Providers Care V Belt Mold Assembler And Curer Name Role Phone Janet Corona MD Primary Care Provider Source Comments [facility],non-owned Affiliates and Associated Physician Practices is amultiple site organization consisting of ambulatory clinics and hospital sitesin [place], [place], [place] and [place]. This disclosure is being madepursuant to the Care Everywhere program and may not contain all information available regarding this patient. Last updated 18.[facility] Allergies Active Allergy Reactions Criticality Noted Date Comments Hydrocodone-Acetaminophen Headache 09/30/2019 Medications * Be aware that medications may not be up to date on this document. Alwaysverify current medications with the patient. valsartan 80 MG TABS 80 mg, hydroCHLOROthiazide 12.5 MG CAPS 12.5 mg Take by mouth once daily Active ezetimibe-simvastatin (VYTORIN) 10-10 MG tablet Take 1 (one) tablet by mouth at bedtime Active fenofibrate (TRICOR) 145 MG tabletIndications:Mixed hyperlipidemia Take 1 tablet by mouth once daily 90 tablet 3 11/02/19 20 Active valACYclovir (Valtrex) 500 MG tablet Take 1 (one) tablet by mouth once daily as directed. 06/18/20 22 Active Cyanocobalamin (VITAMIN B-12 PO) Active Ascorbic Acid (DAY-C PO) Active B Complex Vitamins (VITAMIN B COMPLEX PO) Active ibuprofen (Motrin) 200 MG tablet Take by mouth every 6 hours as needed for Pain Active diphenhydrAMINE (Benadryl Allergy) 25 MG capsule Take 1 (one) capsule by mouth every 4 hours as needed for Itching Active Active Problems Problem Noted Date Diagnosed Date Mixed hyperlipidemia Prediabetes Class 2 obesity Steatohepatitis Chronic alcohol use Hypertension Immunizations Immunization Administration Dates Next Due INFLUENZA VACCINE 05/05/2019 [...] at Not on file Legal Sex Male 5:20 PM ELECTRICAL TESTS SUPERVISOR Gender Identity Not on file Sexual Orientation Not on file Last Filed Vital Signs Vital Sign Reading Time Taken Comments Blood Pressure 138/90 09/30/2019 2:03 PM ELECTRICAL TESTS SUPERVISOR Pulse 70 09/30/2019 2:03 PM ELECTRICAL TESTS SUPERVISOR Temperature 36.2 C (97.2 F) 09/30/2019 2:03 PM ELECTRICAL TESTS SUPERVISOR Respiratory Rate - - Oxygen Saturation 98% 09/30/2019 2:03 PM ELECTRICAL TESTS SUPERVISOR Inhaled Oxygen Concentration - - Weight 113.4 kg (250 lb) 07/12/2022 8:29 AM ELECTRICAL TESTS SUPERVISOR Height 182.9 cm (6') 07/12/2022 8:29 AM ELECTRICAL TESTS SUPERVISOR Body Mass Index 33.91 07/12/2022 8:29 AM ELECTRICAL TESTS SUPERVISOR Plan of Treatment Health Maintenance Due Date [...] SCREENING FOR DIABETES 11/18/2022 11/19/2019 COVID-19 VACCINE ( - season) 2024 06/16/2021, 10/19/2020, 09/23/2020 DEPRESSION SCREENING 07/29/2024 INFLUENZA VACCINE (Season Ended) 2025 05/02/2022, 05/08/2021, 05/18/2020, Additional history exists Respiratory Syncytial Virus (RSV) Vaccine Pt: or [...] complete this topic MENINGOCOCCAL (Group B) VACCINE SHARED DECISION-MAKING Aged Out No longer eligible based on patient's age to complete this topic MENINGOCOCCAL GROUPS A/C/Y/W VACCINE Aged Out No longer eligible based on patient's age to complete this topic Procedures Procedure Name Priority Date/Time Associated Diagnosis Comments HEMOGLOBIN A1C Routine 11/19/2019 8:44 AM CDT Mixed hyperlipidemia Prediabetes Hypertriglyceridemia from Last 3 Months or Most Recently Relevant to Health Maintenance Results * (ABNORMAL) HEMOGLOBIN A1C (11/19/2019 8:44 AM CDT) Hemoglobin A1c 6.0(H) 4.8 - 5.6 % [facility] Comment: . Prediabetes: 5.7 - 6.4 Diabetes: >6.4 Glycemic control for adults with diabetes: <7.0 FASTING Blood BLOOD SPECIMEN / Unknown 11/19/2019 8:44 AM CDT 11/19/2019 Narrative Resulting Agency Comment Lab [facility] performed at: [facility] [address] [id number] Kavita Garzon MD LAB - CHEMISTRY ORDERA BLES Final Result [facility] [address] [place] [address] from Last 3 Months or Most Recently Relevant to Health Maintenance Insurance [facility] Member Subscriber Plan / Payer (Ef fective for All Dates) Name:Maris Covington Relation to Subscriber:Self Name:MARIS COVINGTON Payer ID:[id number] (NAIC) Group ID:Not on file Type:Medicaid Managed Care Address: ATTN CLAIMS DEPARTMENT [address] [place] [phone] [facility] Member Subscriber Plan / Payer (Ef fective for All Dates) Name:Maris Covington Relation to Subscriber:Self Name:MARSI COVINGTON Payer ID:[id number] (NAIC) Group ID:Not on file Type:Medicaid Managed Care Address: ATTN CLAIMS DEPARTMENT [address] [facility] [place] [phone] [facility] Member Subscriber Plan / Payer (Ef fective for All Dates) Name:Maris Covington Relation to Subscriber:Self Name:MARIS COVINGTON Payer ID:[id number] (NAIC) Group ID:Not on file Type:Medicaid Managed Care Address: ATTN CLAIMS DEPARTMENT [address] [place] [id number] [facility] [address] [place] [address] Member Subscriber Plan / Payer (Ef fective for All Dates) Name:Maris Covington Relation to Subscriber:Self Name:MARIS COVINGTON Payer ID:[id number] (NAIC) Group ID:Not on file Type:Medicaid Managed Care Address: ATTN CLAIMS DEPARTMENT [address] [facility] [place] [id number] [facility] Member Subscriber Plan / Payer (Ef fective for All Dates) Name:Maris Covington Relation to Subscriber:Self Name:MARIS COVINGTON Payer ID:[id number] (NAIC) Group ID:Not on file Type:Medicaid Managed Care Address: ATTN CLAIMS DEPARTMENT [address] [place] [id number] [facility] Care Teams V Belt Mold Assembler And Curer Relationship Specialty Start Date End Date Janet Corona MD [address] [place], [place] [id number] PCP - General 05/25/22
--- OUTSIDE RECORDS SUMMARY | 2024-12-26 08:03 | XMS_ITS | Encounter Summary ---
Author Organization [facility] Address [address] [place] [address] Phone Care Team Providers Care Platinum Smith Name Role Phone Janet Corona MD Primary Care Provider Encounter Details Date Type Department Care Team (Latest Contact Info) Description 01/04/2016 Orders Only [facility] Latesha Garduno RN [address] [facility] [address] [place] [address] Social History Tobacco Use Types Packs/Day Years Used Date Smoking Tobacco: Never Assessed Sex and Gender Information Value Date Recorded Sex Assigned at Not on file 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
--- NOTE | 2024-12-26 08:06 | ECG_ITS ---
Test Date: 2024-12-26 08:09:33 Measurements Intervals Echo Rate: 85 P: 50 WI: 178 QRS: 70 QRSD: 121 T: 68 QT: 385 QTc: 459 Interpretive Statements SINUS RHYTHM WITH SINUS ARRHYTHMIA RIGHT BUNDLE BRANCH BLOCK ABNORMAL ECG No previous ECG available for comparison Electronically Signed On 12-27-2024 06:43:37 CDT by Pito Rendon D.O.
--- OUTSIDE RECORDS SUMMARY | 2024-12-26 08:30 | XMS_ITS | Encounter Summary ---
Author Organization [facility] Address [address] [place] [address] Phone Care Team Providers Care Shake Packer Name Role Phone Janet Corona MD Primary Care Provider Encounter Details Date Type Department Care Team (Latest Contact Info) Description 09/04/2023 Orders Only [facility] Latesha Garduno, RENZO [address] [facility] [address] [place] [address] Social History Tobacco Use Types Packs/Day Years Used Date Smoking Tobacco: Some Days Cigarettes Personal Safety Answer Date Recorded Getting School Help Needed Not on file 07/16 Sex and Gender Information Value Date Recorded Sex Assigned at Not on file 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
--- OUTSIDE RECORDS SUMMARY | 2024-12-26 08:30 | XMS_ITS | Clinical Summary ---
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
--- OUTSIDE RECORDS SUMMARY | 2024-12-26 08:30 | XMS_ITS | Encounter Summary ---
Author Organization [employer] [facility] Address 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
--- OUTSIDE RECORDS SUMMARY | 2024-12-26 08:30 | XMS_ITS | Encounter Summary ---
Author Organization [employer] Address 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
--- OUTSIDE RECORDS SUMMARY | 2024-12-26 08:30 | XMS_ITS | Continuity of Care Document ---
Author Organization [facility] Address [address] [place] [address] Phone Care Team Providers Care Concrete Mixing Plant Superintendent Name Role Phone Tommie Mace, Dorinda Unavailable Unavai lable Advance Directives Directive Yes / No Effective Date File Name No Information Encounters Encounter Description Practice Location Reason(s) For Visit Diagnoses Date Provider Providers Copied on Encounter [facility], [address] [facility], [place], [place], [address], [place] tel:[phone] [facility] No Information 5 Tommie Seth. [address], [address], [place], [place], [address] , [place]. tel: [phone] Family History Family Member Type Diagnosis Age [...]
--- OUTSIDE RECORDS SUMMARY | 2024-12-26 08:30 | XMS_ITS | Clinical Summary ---
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
--- OUTSIDE RECORDS SUMMARY | 2024-12-26 08:30 | XMS_ITS | Encounter Summary ---
Author Organization [facility] Address [address] [place] [address] Phone Care Team Providers Care Burlap Spreader Name Role Phone Janet Corona MD Primary Care Provider Encounter Details Date Type Department Care Team (Latest Contact Info) Description 07/01/2023 Orders Only [facility] Latesha Garduno, RN [address] [facility] [address] [place] [address] Social History Tobacco Use Types Packs/Day Years Used Date Smoking Tobacco: Never Assessed Sex and Gender Information Value Date Recorded Sex Assigned at Not on file 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
--- OUTSIDE RECORDS SUMMARY | 2024-12-26 08:30 | XMS_ITS | Continuity of Care Document ---
Author Organization [facility] Address [address] [place] [address] Phone Care Team Providers Care Home Stager Name Role Phone Aminata Douglas Unavailable Unavailable Advance Directives Directive Yes / No Effective Date File Name No Information Encounters Encounter Description Practice Location Reason(s) For Visit Diagnoses Date Provider Providers Copied on Encounter [facility], [address], [place], [place], [address], [place] tel:[phone] [facility] No Information [address] Stella Coates. [address] , [address], [place], [address], [place]. tel:[phone] Family History Family Member Type Diagnosis Age [...]
--- OUTSIDE RECORDS SUMMARY | 2024-12-26 08:30 | XMS_ITS | Encounter Summary ---
Author Organization [facility] Address [address] [place] [address] Care Team Providers Care Picker Operator Name Role Phone Unavailable Primary Care Provider Unavailabl e Encounter Details Date Type Department Care Team (Late st Contact Info) Description 01/02/2001 Outpatient Historical [facility] Internal Medicine Medical [place] [facility] [address] [address] Mario Soria MD [address] [place] [address] Social History Tobacco Use Types Packs/Day Years Used Date Smoking Tobacco: Never Assessed Sex and Gender Information Value Date Recorded Sex Assigned at Not on file 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
--- OUTSIDE RECORDS SUMMARY | 2024-12-26 08:30 | XMS_ITS | Referral Summary ---
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
--- OUTSIDE RECORDS SUMMARY | 2024-12-26 08:30 | XMS_ITS | Encounter Summary ---
Author Organization [facility] Address [address] [place] [address] Phone Care Team Providers Care Candy Catcher Name Role Phone Janet Corona MD Primary Care Provider Encounter Details Date Type Department Care Team (Latest Contact Info) Description 01/04/2016 Orders Only [facility] Latesha Garduno RN [address] [facility] [address] [place] [address] Social History Tobacco Use Types Packs/Day Years Used Date Smoking Tobacco: Never Assessed Sex and Gender Information Value Date Recorded Sex Assigned at Not on file 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
--- OUTSIDE RECORDS SUMMARY | 2024-12-26 08:30 | XMS_ITS | Clinical Summary ---
Author Organization [facility] [employer] Address [address] [facility] [place] [address] Care Team Providers Care Boarding Kennel Or Cattery Operator Name Role Phone Janet Corona MD Primary Care Provider Source Comments [facility] [employer],non-owned Affiliates and Associated Physician Practices is amultiple site organization consisting of ambulatory clinics and hospital sitesin [place], [place], [place] and [place]. This disclosure is being madepursuant to the Care Everywhere program and may not contain all information available regarding this patient. Last updated 18.[facility] [employer] Allergies Active Allergy Reactions Criticality Noted Date [...] on file Legal Sex Male 5:20 PM ETHYLBENZENE OXIDIZER Gender Identity Not on file Sexual Orientation Not on file Last Filed Vital Signs Vital Sign Reading Time Taken Comments Blood Pressure 138/90 09/30/2019 2:03 PM ETHYLBENZENE OXIDIZER Pulse 70 09/30/2019 2:03 PM ETHYLBENZENE OXIDIZER Temperature 36.2 C (97.2 F) 09/30/2019 2:03 PM ETHYLBENZENE OXIDIZER Respiratory Rate - - Oxygen Saturation 98% 09/30/2019 2:03 PM ETHYLBENZENE OXIDIZER Inhaled Oxygen Concentration - - Weight 113.4 kg (250 lb) 07/12/2022 8:29 AM ETHYLBENZENE OXIDIZER Height 182.9 cm (6') 07/12/2022 8:29 AM ETHYLBENZENE OXIDIZER Body Mass Index 33.91 07/12/2022 8:29 AM ETHYLBENZENE OXIDIZER Plan of Treatment Health Maintenance Due Date [...] Hemoglobin A1c 6.0(H) 4.8 - 5.6 % [facility] INSURANCE BILL Comment: . Prediabetes: 5.7 - 6.4 Diabetes: >6.4 Glycemic control for adults with diabetes: <7.0 FASTING Blood BLOOD SPECIMEN / Unknown 11/19/2019 8:44 AM CDT 11/19/2019 Narrative Resulting Agency Comment Lab Testing performed at: [facility] [address] [facility] [id number] Kavita Garzon MD LAB - CHEMISTRY ORDERA BLES Final Result [facility] INSURANCE BILL [address] [place] [address] from Last 3 Months or Most Recently Relevant to Health Maintenance Insurance [facility] Member Subscriber Plan / Payer (Ef fective for All Dates) Name:Maris Covington Relation to Subscriber:Self Name:MARIS COVINGTON Payer ID:[id number] (NAIC) Group ID:Not on file Type:Medicaid Managed Care Address: ATTN CLAIMS DEPARTMENT [address] [place] [id number] [facility] Member Subscriber Plan / Payer (Ef fective for All Dates) Name:Maris Covington Relation to Subscriber:Self Name:MARIS COVINGTON Payer ID:[id number] (NAIC) Group ID:Not on file Type:Medicaid Managed Care Address: ATTN CLAIMS DEPARTMENT [address] [facility] [place] [phone] [facility] Member Subscriber Plan / Payer (Ef fective for All Dates) Name:Maris C[place]ton Relation to Subscriber:Self Name:MARIS COVINGTON Payer ID:[id number] (NAIC) Group ID:Not on file Type:Medicaid Managed Care Address: ATTN CLAIMS DEPARTMENT [address] [place] [id number] [facility] [address] [place] [address] Member Subscriber Plan / Payer (Ef fective for All Dates) Name:Maris Covington Relation to Subscriber:Self Name:MARIS COVINGTON Payer ID:[id number] (NAIC) Group ID:Not on file Type:Medicaid Managed Care Address: ATTN CLAIMS DEPARTMENT [address] [facility] [place] [phone] [facility] Member Subscriber Plan / Payer (Ef fective for All Dates) Name:Maris Covington Relation to Subscriber:Self Name:MARIS COVINGTON Payer ID:[id number] (NAIC) Group ID:Not on file Type:Medicaid Managed Care Address: ATTN CLAIMS DEPARTMENT [address] [place] [id number] [facility] Care Teams Boarding Kennel Or Cattery Operator Relationship Specialty Start Date End Date Janet Corona MD [address] [place], [place] [id number] PCP - General 05/25/22
--- NOTE | 2024-12-26 08:47 | ED_ITS ---
HPI - General Adult General Chief complaint: Extremity Problem,Nontraumatic Stated complaint: right arm weakness Time Seen by Provider: 12/26/24 08:17 History of Present Illness HPI narrative: Patient is a 64-year-old male who presents ER with difficulty using his right upper extremity. Reports that at midnight he started having a weird feeling in his arm and felt like he could use it properly. He went to bed 2 hours later hoping it would go away and he woke up he was still having trouble using his arm to eat breakfast. No slurred speech or facial droop. No history of CVA. Patient reports he did smoke some methamphetamine yesterday afternoon at 3:00 p.m.. He is not a habitual user this was the 1st time. No chest pain. Symptoms have not improved nor worsened. 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 Related Data Home Medications ?Medication ?Instructions ?Recorded ?Confirmed ?Last Taken ?Type atorvastatin 10 mg tablet 10 mg PO DAILY 01/08/24 12/24/24 Unknown History hydroxyzine pamoate 25 mg capsule 50 mg PO PRN anxiety 01/08/24 12/24/24 Unknown History Allergies Allergy/AdvReac Type Severity Reaction Status Date / Time nalbuphine Allergy Unknown Unknown Verified 12/26/24 08:01 hydrocodone AdvReac Unknown Unknown Verified 12/26/24 08:01 Review of Systems 2 Review of Systems: All systems reviewed & are unremarkable except as noted in HPI and below Constitutional: Constitutional: Reports no additional constitutional complaints Cardiovascular: Cardiovascular: Reports no additional cardiovascular complaints Respiratory: Respiratory: Reports no additional respiratory complaints Gastrointestinal: Gastrointestinal: Reports no additional gastrointestinal complaints Musculoskeletal: Musculoskeletal: Reports no additional musculoskeletal complaints Neurologic: Reports system reviewed and no additional complaints, except as documented [facility] Past Medical History Medical History Nasal mucosa dry Lump in throat Laryngopharyngeal reflux (LPR) Dysphagia Hyperlipidemia Hypertension, essential Anxiety Surgical History Surgical History History of inguinal hernia repair Right x 2 Social History Social History (Updated 12/24/24 @ 15:23 by Coby Dumas MA) Social History: Caffeine-soda Smoking packs per day: 0 Smoking cigarettes per day: 0.0 Years smoked: 30 Smoking pack-years: 0.00 Smoking status: Former smoker Second hand tobacco smoke exposure: Yes Smoking end date: 07/29/11 Alcohol intake: current Drinks per week: 15 Substance use: current Substance use type: marijuana Living arrangements: alone 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 HEAD: Normocephalic, atraumatic. EYES: PERRL and EOMI. ENT: Mucous membranes moist. CHEST: Clear to auscultation. No respiratory distress. HEART: Regular rate and rhythm. Normal peripheral pulses. ABDOMEN: Soft, nontender, nondistended. EXTREMITIES: Normal range of motion. No edema. SKIN: Warm, dry, no rash. NEURO: Very mild right upper extremity drift. NIH stroke scale otherwise negative. Alert and oriented x3. PSYCH: Normal mood and affect. Course Course Emergency Course: I have interviewed and examined the patient. I have determined that the patient has the capacity to understand the information relevant to their care. The patient also understands the consequences of the various options after we discussed relevant information. I feel that the patient is able to understand the relevant information and responds appropriately to questions. I have attempted to persuade the patient to stay to receive care. The patient understands by leaving there is a possibility of , disability, or serious injury. Despite the above information the patient has made the decision to leave against medical advice. I have attempted to persuade the patient to follow up with a physician WYATT. I have also notified the patient they may return at any time to the ED for further care. I have spoke with patient's PCP. I am going to place the patient on dual anti- platelet therapy and he needs to call the PCP on Saturday. I will also place him on high-dose statin for home. He has been educated that if he can obtain an Apple watch that monitors for atrial fibrillation wearing 1 of those would be balderas as well. Patient educated on bleeding risks as well. Vital Signs Vital signs: Vital Signs Temperature 97.5 F L 12/26/24 08:05 Pulse Rate 84 12/26/24 08:05 Respiratory Rate 16 12/26/24 08:05 Blood Pressure 135/78 12/26/24 08:05 Pulse Oximetry 99 12/26/24 08:05 Temperature 97.5 F L 12/26/24 08:05 Pulse Rate 88 12/26/24 10:54 Respiratory Rate 14 12/26/24 10:54 Blood Pressure 144/97 H 12/26/24 10:54 Pulse Oximetry 100 12/26/24 10:54 Medical Decision Making Vital Signs Vital Signs: Vital Signs Temperature 97.5 F L 12/26/24 08:05 Pulse Rate 84 12/26/24 08:05 Respiratory Rate 16 12/26/24 08:05 Blood Pressure 135/78 12/26/24 08:05 Pulse Oximetry 99 12/26/24 08:05 Temperature 97.5 F L 12/26/24 08:05 Pulse Rate 88 12/26/24 10:54 Respiratory Rate 14 12/26/24 10:54 Blood Pressure 144/97 H 12/26/24 10:54 Pulse Oximetry 100 12/26/24 10:54 Lab Data 12/26/24 08:57 12/26/24 08:57 Labs: Lab Results 12/26/24 12/26/24 Range/Units 08:57 09:04 WBC 6.8 (4.5-10.0) K/mm3 RBC 4.65 (4.6-6.20) M/mm3 Hgb 14.3 (14.0-18.0) g/dL Hct 43.0 (42.0-52.0) % MCV 92.5 (80-100) fl MCH 30.8 (26-34) pg MCHC 33.3 (32-36) g/dl RDW 13.2 (11.5-14.5) % Plt Count 209 (150-375) k/mm3 MPV 11.3 H (7.4-10.4) fl Immature Gran % (Auto) 0.1 (0-0.5) % Neut % (Auto) 67.8 (45.5-73.1) % Lymph % (Auto) 20.2 (18.3-44.2) % [place] % (Auto) 7.2 (2.6-8.5) % Eos % (Auto) 4.7 H (0-4.4) % Baso % (Auto) 0.0 L (0.2-1.2) % Lymph # (Auto) 1.37 (0.9-3.2) K/mm3 [place] # (Auto) 0.5 (0.1-0.6) K/mm3 Eos # (Auto) 0.3 (0-0.3) K/mm3 Baso # (Auto) 0.0 (0.0-0.1) K/mm3 Abs Immat Gran (auto) 0.01 (0.00-0.031) K/mm3 Absolute Neuts (auto) 4.6 (1.3-6.7) K/mm3 Absolute Nucleated RBC 0.000 (0.0-0.012) K/mm3 Nucleated RBC % 0.0 (0.0-0.2) % PT 12.8 (11.1-14.7) Seconds INR 1.0 APTT 25.9 (22.3-36.8) Seconds Sodium 138 (137-145) mmol/L Potassium 3.9 (3.4-5.0) mmol/L Chloride 105 (98-107) mmol/L Carbon Dioxide 24 (22-30) mmol/L Anion Gap 9 (4-12) mmol/L BUN 16 (9-20) mg/dL Creatinine 0.86 (0.7-1.3) mg/dL Estim Creat Clear Calc 102 ml/min Estimated GFR > 60 (59 - ) Glucose 132 H (65-110) mg/dL Calcium 9.6 (8.4-10.2) mg/dL Total Bilirubin 0.8 (0.2-1.3) mg/dL AST 33 (17-59) U/L ALT 25 (6-50) U/L Alkaline Phosphatase 74 (38-126) U/L Troponin I < 0.012 (0.000-0.034) ng/mL Total Protein 7.0 (6.3-8.2) g/dL Albumin 4.4 (3.5-5.1) g/dL Urine Color Yellow (Yellow) Urine Appearance Clear (Clear) Urine pH 7.0 (5.0-9.0) Ur Specific [place] 1.013 (1.001-1.035) Urine Protein 2+ H (Negative) mg/dL Urine Glucose (UA) Negative (Negative) mg/dL Urine Ketones Negative (Negative) mg/dL Ur Blood (Man) Negative (Negative) Urine Nitrate Negative (Negative) Urine Bilirubin Negative (Negative) Urine Urobilinogen 1.0 (<2.0) mg/dL Leukocyte Esterase Rfl Negative (Negative) NENA/UL Urine RBC 0-2 (0-2) /hpf Urine WBC 0-5 (0-3) /hpf Ur Squamous Epith Cells None seen (Few) /hpf Urine Bacteria None seen /hpf Urine Casts 0-2 Urine Opiates Screen Negative (Negative) Urine Methadone Screen Negative (Negative) Ur Barbiturates Screen Negative (Negative) Ur Phencyclidine Scrn Negative (Negative) Ur Amphetamine Screen Positive A (Negative) U Benzodiazepines Scrn Negative (Negative) Urine Cocaine Screen Negative (Negative) U Cannabinoids Screen Positive A (Negative) Imaging Data Radiologist's impression: ITS Impressions Chest X-Ray 12/26/24 09:43 Impression: 1: No acute cardiopulmonary disease. Head/Neck CTA 12/26/24 10:00 IMPRESSION: 1. 33% stenosis of the proximal right internal carotid artery relative to normal distal artery lumen diameter (NASCET criteria). 2. Less than 20% stenosis of the proximal left internal carotid artery relative to normal distal artery lumen diameter. 3: No acute intracranial abnormality. No significant vascular abnormality. 4: Pansinusitis which appears chronic. ECG Data EKG #1: ECG completion date: 12/26/24 ECG completion time: 08:09 EKG Interpretation: normal rate (85), sinus rhythm, normal QRS, normal QT and NL axis Discharge Plan Discharge Clinical Impression: Acute CVA (cerebrovascular accident) Patient Disposition: Left Against Medical Advice Condition: Guarded Prognosis Additional Instructions: Call your primary care doctor WYATT brooke on Saturday morning. Return to the ER if you have worsening symptoms. Patient Language: Armenian Prescriptions: New aspirin 81 mg tablet 81 mg PO DAILY Qty: 21 0RF clopidogrel [Plavix] 75 mg tablet 75 mg PO DAILY Qty: 20 0RF atorvastatin [Lipitor] 80 mg tablet 80 mg PO DAILY Qty: 30 0RF No Action hydroxyzine pamoate 25 mg capsule 50 mg PO PRN (Reason: anxiety) atorvastatin 10 mg tablet 10 mg PO DAILY meloxicam 15 mg tablet 15 mg PO DAILY Qty: 30 0RF valacyclovir [Valtrex] 1 gram tablet See Rx Instructions .Route .COMPLEX Qty: 28 5RF Rx Instructions: 2 po prn cold sore, repeat after 12 hrs ; Follow-up/Referrals: Raymond Vance MD [Primary Care Provider] - Quality Stroke Date of last known normal: 12/26/24 Time of last known normal: 00:00 Stroke Scale Stroke Scale 1: Stroke scale date:: 12/26/24 Stroke scale time:: 08:25 1a Level of consciousness: alert-0 1b Level of consciousness questions: answers both correctly-0 1c Level of consciousness commands: obeys both correctly-0 2 Best gaze: normal-0 3 Visual: no visual loss-0 4 Facial palsy: normal-0 5a Motor: left arm: no drift-0 5b Motor: right arm: drift-1 6a Motor: left leg: no drift-0 6b Motor: right leg: no drift-0 7 Limb ataxia: absent-0 8 Sensory: normal-0 9 Best language: no aphasia-0 10 Dysarthria: normal-0 11 Extinction and inattention: no abnormality-0 Level:: 1
[2024-12-26 09:05] LABS: Eosinophils Absolute Auto 0.3 K/mm3 (0-0.3); Eosinophils Percent Auto 4.7 % (0-4.4); Hemoglobin 14.3 g/dL (14.0-18.0); Immature Granulocyte Absolute 0.01 K/mm3 (0.00-0.031); Immature Granulocyte Percent A 0.1 % (0-0.5); Lymphocytes Absolute Auto 1.37 K/mm3 (0.9-3.2); Lymphocytes Percent Auto 20.2 % (18.3-44.2); Mean Corpuscular HGB Conc 33.3 g/dl (32-36); Mean Corpuscular Hemoglobin 30.8 pg (26-34); Mean Corpuscular Volume 92.5 fl (80-100); Mean Platelet Volume 11.3 fl (7.4-10.4); Monocytes Absolute Auto 0.5 K/mm3 (0.1-0.6); Monocytes Percent Auto 7.2 % (2.6-8.5); Neutrophils Absolute Auto 4.6 K/mm3 (1.3-6.7); Neutrophils Percent Auto 67.8 % (45.5-73.1); Platelet Count Result 209 k/mm3 (150-375); Red Blood Count 4.65 M/mm3 (4.6-6.20); Red Cell Distribution Width 13.2 % (11.5-14.5); White Blood Count 6.8 K/mm3 (4.5-10.0)
[2024-12-26 09:14] LABS: Alanine Aminotransferase 25 U/L (6-50); Albumin Level 4.4 g/dL (3.5-5.1); Alkaline Phosphatase 74 U/L (38-126); Anion Gap 9 mmol/L (4-12); Aspartate Amino Transferase 33 U/L (17-59); Bilirubin,Total 0.8 mg/dL (0.2-1.3); Blood Urea Nitrogen 16 mg/dL (9-20); Calcium 9.6 mg/dL (8.4-10.2); Carbon Dioxide 24 mmol/L (22-30); Chloride 105 mmol/L (98-107); Estimated CRCL calculation 102 ml/min; Estimated Glomerular Filt Rate > 60; Glucose 132 mg/dL (65-110); Potassium 3.9 mmol/L (3.4-5.0); Sodium 138 mmol/L (137-145)
[2024-12-26 09:17] LABS: Partial Thromboplastin Time 25.9 Seconds (22.3-36.8); Prothrombin Time 12.8 Seconds (11.1-14.7)
[2024-12-26 09:22] LABS: Add Urine Microscopic? YES; Appearance Urine Clear (Clear); Bacteria Urine None Seen /hpf; Bilirubin Urine Negative (Negative); Blood Urine Negative (Negative); Color Urine Yellow (Yellow); Glucose Urine UA Negative (Negative); Ketones Urine Negative (Negative); Leukocyte Esterase Ur Negative LEU/UL (Negative); Nitrate Urine Negative (Negative); Non Pathogenic Casts 0-2; Protein Urine 2+ mg/dL (Negative); RBC Urine 0-2 /hpf (0-2); Specific Grav Ur 1.013 (1.001-1.035); Squamous Epithelial Cell Urine None Seen /hpf (Few); WBC Urine 0-5 /hpf (0-3)
[2024-12-26 09:26] LABS: Troponin I < 0.012 ng/mL (0.000-0.034)
[2024-12-26 09:32] LABS: Barbiturate Screen Urine Negative (Negative); Benzodiazepines Screen Urine Negative (Negative)
[2024-12-26 09:38] LABS: Amphetamine Screen Urine Positive (Negative); Cannabinoid Screen Urine Positive (Negative); Cocaine Screen Urine Negative (Negative); Methadone Screen Urine Negative (Negative); Opiate Screen Urine Negative (Negative); Phencyclidine Screen Urine Negative (Negative)
--- NOTE | 2024-12-26 11:10 | PC.NURSE ---
Dr. Zabala at bedside updating pt.
[2024-12-26] MEDS: CLOPIDOGREL BISULFATE 75 MG TABLET PO (11:35)
[2024-12-26] MEDS: ASPIRIN 325 MG TABLET PO (11:35)
--- NOTE | 2024-12-26 11:36 | PC.NURSE ---
Pt. wishes to sign out of AMA. Dr. Zabala at bedside updating pt. on risks of leaving AMA. Pt. is A&Ox4 and verbalized understanding. Pt. also educated on risks associated with starting on a blood thinner.
== END 2024-12-26 11:47 | disposition left against medical advice (07) ==
PROVIDERS: Emergency Provider Emergency Medicine; PCP Family Medicine
DX: I63.9 Cerebral infarction, unspecified (principal); Z87.891 Personal history of nicotine dependence; F12.90 Cannabis use, unspecified, uncomplicated; F15.90 Other stimulant use, unspecified, uncomplicated; R29.701 NIHSS score 1
CPT/HCPCS: 36415; 70496; 70498; 71046; 80053; 80307; 81001; 84484; 85025; 85610; 85730; 93005; 99284; A9270; Q9967

== ENCOUNTER 2025-04-02 12:18 | Outpatient (CLI) | payer OTHER, SELFPAY ==
--- OUTSIDE RECORDS SUMMARY | 2000-01-11 03:00 | XMS_ITS | Continuity of Care Document ---
Author Organization [facility] Address [address] [place] [address] Phone Care Team Providers Care Practice Director Name Role Phone Aminata Douglas Unavailable Unavailable Advance Directives Directive Yes / No Effective Date File Name No Information Encounters Encounter Description Practice Location Reason(s) For Visit Diagnoses Date Provider Providers Copied on Encounter [facility], [address], [place], [place], [id number], [place] tel:[phone] [facility] No Information [phone] Stella Coates. [address] , [address], [place], [address], [place]. tel:[phone] Family History Family Member Type Diagnosis Age At Onset No Information Payers Payer name Insurance type Covered republican ID Authoriza tion(s) No Information Social History Type Description Quantity Date Captured Comments Sex Male Smoking Status No Information Chief Complaint And Reason For Visit No Information Reason For Referral Reason For Referral No Information History Of Present Illness Encounter Date Complaint History Of Prese nt Illness No Information Functional Status Date Functional Assessmen t No Information Instructions Date Instruction Additional Infor mation No Information Assessments Type Assessment Date No Information Patient Care Teams Name Effective Dates (start - stop) Status Members No Information
--- OUTSIDE RECORDS SUMMARY | 2015-05-30 09:35 | XMS_ITS | Continuity of Care Document ---
Author Organization [facility] Address [address] [place] [address] Phone Care Team Providers Care Splicer Operator Name Role Phone Tommie Mace, Dorinda Unavailable Unavai lable Advance Directives Directive Yes / No Effective Date File Name No Information Encounters Encounter Description Practice Location Reason(s) For Visit Diagnoses Date Provider Providers Copied on Encounter [facility], [address] [facility] [address] [place], [place], [id number], [place] tel:[phone] [facility] No Information 5 Tommie Seth. [address] [facility], [facility] [address], [place], [place], [id number] , [place]. tel:[phone] Family History Family Member Type Diagnosis Age At Onset No Information Payers Payer name Insurance type Covered constitution party ID Authoriza tion(s) No Information Social History [...]
--- NOTE | ~2025-04-02 | XR_ITS ---
[id number] 04/02/2025 12:41 Indication: Right knee pain Procedure: 2 views right knee Comparison: No prior studies for comparison. Findings: No fracture, subluxation or dislocation. No significant joint effusion. No joint space narrowing. No foreign bodies. Impression: 1: No significant bone or joint abnormality. Reviewed, dictated and finalized at location O. Impression: 1: No significant bone or joint abnormality.
--- OUTSIDE RECORDS SUMMARY | 2025-04-02 12:22 | XMS_ITS | Encounter Summary ---
Author Organization [employer] Address 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
--- OUTSIDE RECORDS SUMMARY | 2025-04-02 12:22 | XMS_ITS | Clinical Summary ---
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
--- OUTSIDE RECORDS SUMMARY | 2025-04-02 12:22 | XMS_ITS | Encounter Summary ---
Author Organization [facility] Address [address] [place] [address] Care Team Providers Care Molded Goods Inspector Trimmer Name Role Phone Unavailable Primary Care Provider Unavailabl e Encounter Details Date Type Department Care Team (Late st Contact Info) Description 01/02/2001 Outpatient Historical [facility] Internal Medicine [facility] [place] [facility] [address] [facility] [address] [address] Mario Soria MD [address] [place] [address] Social History Tobacco Use Types Packs/Day Years Used Date Smoking Tobacco: Never Assessed Sex and Gender Information Value Date Recorded Sex Assigned at Not on file 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
--- OUTSIDE RECORDS SUMMARY | 2025-04-02 12:22 | XMS_ITS | Encounter Summary ---
Author Organization [facility] Address [address] [place] [address] Phone Care Team Providers Care Manager Work Name Role Phone Janet Corona MD Primary Care Provider Raymond Vance MD Primary Care Provider Encounter Details Date Type Department Care Team (Latest Contact Info) Description 01/04/2016 Orders Only [facility] Latesha Garduno RN [address] [facility] [address] [place], [place] [id number] Social History Tobacco Use Types Packs/Day Years Used Date Smoking Tobacco: Never Assessed Sex and Gender Information Value Date Recorded Sex Assigned at Not on file 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
--- OUTSIDE RECORDS SUMMARY | 2025-04-02 12:22 | XMS_ITS | Encounter Summary ---
Author Organization [facility] Address [address] [place] [address] Phone Care Team Providers Care Belt Lacer Name Role Phone Janet Corona MD Primary Care Provider Raymond Vance MD Primary Care Provider Encounter Details Date Type Department Care Team (Latest Contact Info) Description 09/04/2023 Orders Only [facility] Latesha Garduno, RENZO [address] [facility] [address] [place], [place] [id number] Social History Tobacco Use Types Packs/Day Years Used Date Smoking Tobacco: Some Days Cigarettes Personal Safety Answer Date Recorded Getting School Help Needed Not on file 07/16 Sex and Gender Information Value Date Recorded Sex Assigned at Not on file 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
--- OUTSIDE RECORDS SUMMARY | 2025-04-02 12:22 | XMS_ITS | Encounter Summary ---
Author Organization [employer] [facility] Address 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
--- OUTSIDE RECORDS SUMMARY | 2025-04-02 12:22 | XMS_ITS | Clinical Summary ---
Author Organization [facility] [employer] Address [address] [place] [address] Care Team Providers Care Boring Machine Operator Helper Name Role Phone Janet Corona MD Primary Care Provider Source Comments [facility] [employer],non-owned Affiliates and Associated Physician Practices is amultiple site organization consisting of ambulatory clinics and hospital sitesin [place], [place], [place] and [place]. This disclosure is being madepursuant to the Care Everywhere program and may not contain all information available regarding this patient. Last updated 18.[facility] [employer] Allergies Active Allergy Reactions Criticality Noted Date [...] on file Legal Sex Male 5:20 PM MANAGER OF PROGRAM Gender Identity Not on file Sexual Orientation Not on file Last Filed Vital Signs Vital Sign Reading Time Taken Comments Blood Pressure 138/90 09/30/2019 2:03 PM MANAGER OF PROGRAM Pulse 70 09/30/2019 2:03 PM MANAGER OF PROGRAM Temperature 36.2 C (97.2 F) 09/30/2019 2:03 PM MANAGER OF PROGRAM Respiratory Rate - - Oxygen Saturation 98% 09/30/2019 2:03 PM MANAGER OF PROGRAM Inhaled Oxygen Concentration - - Weight 113.4 kg (250 lb) 07/12/2022 8:29 AM MANAGER OF PROGRAM Height 182.9 cm (6') 07/12/2022 8:29 AM MANAGER OF PROGRAM Body Mass Index 33.91 07/12/2022 8:29 AM MANAGER OF PROGRAM Plan of Treatment Health Maintenance Due Date [...] 2) 2012 SCREENING FOR DIABETES 11/18/2022 11/19/2019 DEPRESSION SCREENING 07/29/2024 COVID-19 VACCINE ( - 2024- season) 2025 06/16/2021, 10/19/2020, 09/23/2020 INFLUENZA VACCINE (#1) 2025 2, 05/08/2021, 05/18/2020, Additional history exists Respiratory Syncytial [...] Hemoglobin A1c 6.0(H) 4.8 - 5.6 % [facility] INSURANCE BILL Comment: . Prediabetes: 5.7 - 6.4 Diabetes: >6.4 Glycemic control for adults with diabetes: <7.0 FASTING Blood BLOOD SPECIMEN / Unknown 11/19/2019 8:44 AM CDT 11/19/2019 Narrative Resulting Agency Comment Lab [facility] performed at: [facility] [address] [facility] [id number] Kavita Garzon MD LAB - CHEMISTRY ORDERA BLES Final Result [facility] INSURANCE BILL [address] [place] [address] from Last 3 Months or Most Recently Relevant to Health Maintenance Insurance [facility] Member Subscriber Plan / Payer (Ef fective for All Dates) Name:Maris Covington Relation to Subscriber:Self Name:MARIS COVINGTON Payer ID:[id number] (NAIC) Group ID:Not on file Type:Medicaid Managed Care Address: ATTN CLAIMS DEPARTMENT [address] [place] [phone] [facility] Member Subscriber Plan / Payer (Ef fective for All Dates) Name:Maris Covington Relation to Subscriber:Self Name:MARIS COVINGTON Payer ID:[id number] (NAIC) Group ID:Not on file Type:Medicaid Managed Care Address: ATTN CLAIMS DEPARTMENT [address] [facility] [place] [phone] [facility] Member Subscriber Plan / Payer (Ef fective for All Dates) Name:Maris Covington Relation to Subscriber:Self Name:MARIS COVINGTON Payer ID:[id number] (NAIC) Group ID:Not on file Type:Medicaid Managed Care Address: ATTN CLAIMS DEPARTMENT [address] [place] [phone] [facility] [id number] [place] [address] Member Subscriber Plan / Payer (Ef fective for All Dates) Name:Maris Covington Relation to Subscriber:Self Name:MARIS COVINGTON Payer ID:[id number] (NAIC) Group ID:Not on file Type:Medicaid Managed Care Address: ATTN CLAIMS DEPARTMENT [address] [facility] [place] [phone] [facility] Member Subscriber Plan / Payer (Ef fective for All Dates) Name:Maris Covington Relation to Subscriber:Self Name:MARIS COVINGTON Payer ID:[id number] (NAIC) Group ID:Not on file Type:Medicaid Managed Care Address: ATTN CLAIMS DEPARTMENT [address] [place] [phone] [facility] Care Teams Boring Machine Operator Helper Relationship Specialty Start Date End Date Janet Corona MD [address] [place], [place] [phone] PCP - General 05/25/22
--- OUTSIDE RECORDS SUMMARY | 2025-04-02 12:22 | XMS_ITS | Clinical Summary ---
Author Organization [facility] Address [address] [place] [id number] Care Team Providers Care Cat Skinner Name Role Phone Raymond Vance MD Primary Care Provider Allergies Active Allergy Reactions Criticality Noted Date Comments Gemfibrozil Itching Low 10/02/2018 Hydrocodone-Acetaminophen Headache Low 09/30/2019 Metoprolol Fatigue Low 11/29/2023 Nalbuphine Unknown 08/07/2023 Rbvomjz-Zcl-Mic Reductase Inhibitors Diarrhea Low 08/07/2023 Medications clopidogreL (PLAVIX) 75 mg tablet Take 1 tablet (75 mg total) by mouth daily Active aspirin 81 mg chewable tablet Take 1 tablet (81 mg total) by mouth daily Active atorvastatin (LIPITOR) 80 mg tablet Take 1 tablet (80 mg total) by mouth daily Active aspirin 81 mg enteric coated tabletIndication s:cerebral ischemia Take 1 tablet (81 mg total) by mouth daily 60 tablet 12/30/2024 Active atorvastatin (LIPITOR) 80 mg tabletIndication s:Secondary Stroke Prevention Take 1 tablet (80 mg total) by mouth daily 60 tablet 12/30/2024 Active Active Problems Problem Noted Date Diagnosed Date Right hand weakness 12/28/2024 Hypertension 10/15/2023 Mixed hyperlipidemia 10/15/2023 Generalized anxiety disorder 10/15/2023 Chronic alcohol use 10/15/2023 Tinnitus 10/15/2023 Encounters Date Type Department Care Team Description 01/04/2025 [facility] Post Discharge Follow up phone call [facility] [address] [place] [address] Dayne Castillo RN from Last 3 Months Social History Tobacco Use Types Packs/Day Years Used Date Smoking Tobacco: Some Days Cigarettes Tobacco Cessation:Ready to Q uit: Not Asked; Counseling Given: Not Answered Alcohol Use Standard Drinks/Week Comments Yes 5 (1 standard drink = 0.6 oz pur e alcohol) daily and 1/2 pink captain PHQ-2 Answer Date Recorded PHQ-2 Total Score (If total score is 3 or more points, staff should administer the PHQ-9) 0 12/29/2024 PHQ-9 Answer Date Recorded PHQ-9 Total Score 0 12/29/2024 Personal Safety Answer Date Recorded Have you ever been in or are you currently in a harmful physical or emotional relationship or is someone making you feel afraid or unsafe? 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 Gender Identity Not on file Sexual Orientation Not on file Obstetrics History Last Filed Vital Signs Vital Sign Reading Time Taken Comments Blood Pressure 124/86 12/29/2024 10:28 AM CDT Pulse 74 12/29/2024 10:28 AM CDT Temperature 36.8 C (98.2 F) 12/29/2024 8:19 AM CDT Respiratory Rate 18 12/29/2024 8:19 AM CDT Oxygen Saturation 98% 12/29/2024 10:28 AM CDT Inhaled Oxygen Concentration - - Weight 110 kg (242 lb 8.1 oz) 12/29/2024 3:42 AM CDT Height 182.9 cm (6') 12/29/2024 3:42 AM CDT Body Mass Index 32.89 12/29/2024 3:42 AM CDT Plan of Treatment Health Maintenance Due Date Last Done Comments Colon Cancer Screening-Colonoscopy 1962 Prostate Cancer Screening-PSA 1962 DTaP/Tdap/Td Vaccine (1 - Tdap) 1973 Hepatitis B Screening 1980 Regular Well Visit/Exam 18-64 1980 Pneumococcal vaccine <65 (1 of 2 - PCV) 1981 Zoster Vaccine (1 of 2) 2012 Covid-19 Vaccine (2023-2 5 season) 2024 06/05/2023, 05/29/2022, 06/16/2021, Additional history exists Influenza Vaccine (#1) 2025 , 05/02/2022, 05/08/2021, Additional history exists Depression Screening 12/28/2025 12/28/2024, 12/29/19 25 Hepatitis C Screening Completed 12/29/2024 Procedures Procedure Name Priority Date/Time Associated Diagnosis Comments HEPATITIS C ANTIBODY Routine 12/29/2024 4:09 AM CDT from Last 3 Months or Most Recently Relevant to Health Maintenance Results * Hepatitis C antibody Blood (12/29/2024 4:09 AM CDT) Hep C Ab Nonreactive Nonreactive Comment:Antibodies to HCV no t detected. Does NOT exclude the possibility of recent exposure to HCV. Current interpretive data was last revised on 22 Blood 12/29/2024 4:09 AM CDT 12/29/2024 4:29 AM CDT us Tone Rabago MD LAB MICROBIOLOGY - GENERAL ORDER FEDERICO Final Result [facility] [place] [address] from Last 3 Months or Most Recently Relevant to Health Maintenance Insurance [facility] Advance Directives For more information, please contact: [phone] * Full Code (Latest Code Status on File) Date Activated Date Inactivated Comments 12/29/2024 3:40 AM 12/29/2024 5:36 PM Care Teams Cat Skinner Relationship Specialty Start Date End Date Raymond Vance MD [address] [facility] [address] [place] [address] PCP - General Family Medicine 12/28/24
--- OUTSIDE RECORDS SUMMARY | 2025-04-02 12:22 | XMS_ITS | Encounter Summary ---
Author Organization [facility] Address [address] [place] [address] Phone Care Team Providers Care Casino Cage Supervisor Name Role Phone Janet Corona MD Primary Care Provider Raymond Vance MD Primary Care Provider Encounter Details Date Type Department Care Team (Latest Contact Info) Description 07/01/2023 Orders Only [facility] Latesha Garduno, RENZO [address] [facility] [address] [place], [place] [id number] Social History Tobacco Use Types Packs/Day Years Used Date Smoking Tobacco: Never Assessed Sex and Gender Information Value Date Recorded Sex Assigned at Not on file 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 Gender Identity Not on file Sexual Orientation [...] RADIOLOGY/IMAGING (07/01/2023) Anatomical Region Laterality Modality Other Latesha Garduno RN Final Result documented in this encounter Visit Diagnoses Not on filedocumented in this encounter Care Teams Casino Cage Supervisor Relationship Specialty Start Date End Date Janet Corona MD [facility] [address] PCP - General Internal Medicine 06/19/23 12/27/24 Raymond Vance MD [address] [facility] [address] [place] [address] PCP - General Family Medicine 12/28/24 documented as of this encounter
== END 2025-04-02 12:19 | disposition home or self-care (01) ==
PROVIDERS: PCP Family Medicine; Visit Provider Family Medicine
DX: M25.561 Pain in right knee (principal)
CPT/HCPCS: 73560